=== PATIENT | male | born 1970 | race Caucasian/White ===

== ENCOUNTER 2023-11-25 21:10 | Emergency (ER) | payer BC, SELFPAY ==
[2023-11-25 21:13] VITALS: BP 195/145
[2023-11-25] MEDS: ADENOCARD 6 MG IV (21:29)
[2023-11-25 21:30] LABS: % Basophils 0.4 % (0-2); % Eosinophils 0.2 % (0-6); % Immature Granulocytes 0.4 % (0-0.5); % Lymphocytes 13.9 % (20.5-51.1); % Monocytes 6.7 % (1.7-9.3); % Neutrophils 78.4 % (42.2-75.2); Absolute Basophils 0.1 10^3/uL (0-0.2); Absolute Immature Granulocytes 0.1 10^3/uL (0-0.05); Absolute Lymphocytes 1.7 10^3/uL (1.2-3.4); Absolute Monocytes 0.8 10^3/uL (0.1-0.6); Absolute Neutrophils 9.4 10^3/uL (1.4-6.5); Hematocrit 47.7 % (39.0-52.0); Hemoglobin 17.2 g/dL (13.0-18.0); Mean Corp Hgb Conc. 36.1 g/dL (33.0-37.0); Mean Corpuscular Hgb 32.6 pg (27.0-31.0); Mean Corpuscular Volume 90.5 fL (80.0-94.0); Nucleated Red Blood Cells % 0 % (-); Platelet Count 260 10^3/uL (130-400); Red Blood Cell Count 5.27 10^6/uL (4.70-6.10); Red Cell Dist. Width 12.3 % (11.5-14.5)
[2023-11-25] MEDS: ADENOCARD 12 MG IV (21:31)
[2023-11-25 21:33] VITALS: BP 190/135
[2023-11-25 21:34] VITALS: BMI 26.9
[2023-11-25 21:36] VITALS: BP 177/122
[2023-11-25 21:46] LABS: ALT (SGPT) 31 U/L (0-50); AST (SGOT) 75 U/L (17-59); Albumin 4.6 g/dl (3.5-5.0); Alkaline Phosphatase 69 U/L (38-126); Blood Urea Nitrogen 21 mg/dl (9-20); Calcium 9.4 mg/dl (8.4-10.2); Carbon Dioxide 28 mmol/L (22-30); Chloride 101 mmol/L (98-107); Estimated Creatinine Clearance 94 ml/min; Glucose 137 mg/dl (70-99); Potassium 3.9 mmol/L (3.5-5.1); Sodium 136 mmol/L (135-145); Total Bilirubin 1.3 mg/dl (0.2-1.3); Total Protein 7.7 g/dl (6.3-8.2); eGFR > 60.00
--- NOTE | 2023-11-25 21:48 | ED.GENMED ---
History of Present Illness
General
Chief Complaint: Heart Rate Problem
Source: patient and spouse
Exam Limitations: none
Time Seen by Provider: 11/25/23 21:24
Nursing documentation reviewed up to this point in time: agreed with
Travel History
Have you had any contact with someone who has COVID-19?: No
Do you have any symptoms of coronavirus? Fever > 100 degrees, chills, cough, shortness of breath, sore throat, loss of taste or smell, muscle aches, or headache?: No
History of Present Illness
History of Present Illness:
53-year-old male with a past medical history of hypertension who presents to the emergency department for evaluation of palpitations. Patient reports onset of symptoms few hours ago while at work and have been consistent since that time. He says
that he has a history of similar palpitations in the past and has seen a repair clerk but does not have a clear diagnosis�he says that typically he has an episode of palpitations once a year the last for about an hour and goes away when he lays down
to relax. 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 Denies any chest
pain. Denies any dizziness. He denies any shortness of breath. He denies any nausea or vomiting or recent illness.
Past History
Past History
ED Past Medical History: HTN
ED Past Surgical History: None
Social History
Personal:
Living: with family
Review of Systems
Review of Systems
All Other Systems: ROS reviewed and negative except as documented in HPI and ROS
Constitutional: Denies fever or chills
Respiratory: Denies cough or trouble breathing
Cardiac: Reports palpitations; Denies chest pain, diaphoresis or syncope
ABD/GI: Denies abdominal pain, nausea, vomiting or diarrhea
: Denies flank pain
Musculoskeletal: Denies neck pain or back pain
Neurological: Denies dizzy, headache, weakness or numbness
Phy Exam
Physical Exam
Physical Exam:
General: Awake, alert, oriented x3; no acute distress
Head: Normocephalic, atraumatic
Eyes: Conjunctiva normal, EOMI
Throat: Airway intact, handling secretions
Neck: Trachea midline, supple without meningismus
Lungs: Clear to auscultation bilaterally, no wheezing, rales, rhonchi
Heart: Tachycardia with ostensibly regular rhythm, no murmurs, gallops, or rubs
Abd: Soft, non distended, nontender
Neuro: Cranial nerves grossly intact, speech fluid
Skin: no rash
Extremities: Warm and well-perfused with good pulses in all extremities, no edema in his extremities
Scores
Heart Failure Risk
Heart Failure Risk Score: Not Applicable
Heart Score for Chest Pain Patients
STEMI patient?: Not applicable
Withdrawal Assessment of Alcohol
Withdrawal Assessment Completed?: Not applicable
Course
Orders/Labs/Results
Orders:
Orders
11/25/23 21:12
Electrocardiogram (*1) Urgent
Reason for Study: Chest Pain
Cardiac Monitoring- Treatment ONCE
EKG- Treatment ONCE
IV Insert/Care/Rem.- Treatment PRN
O2 Therapy [RESP] Urgent
Titrate/Wean O2 to maintain O2 sat greater than (%): 90
Special Instructions: Maintain sats >/=90%
Pulse Ox/spot Check [RESP] Urgent
Quantity: 1
Special Instructions: ON ROOM AIR
11/25/23 21:18
Adenosine [Adenocard] 18 mg .ROUTE .STK-MED ONE
11/25/23 21:24
Complete Blood Count/With Diff Urgent
Comprehensive Metabolic Panel Urgent
TSH Reflex To Free T4 Urgent
Troponin I Urgent
11/25/23 21:29
Adenosine [Adenocard] 6 mg IV NOW STA
11/25/23 21:31
Adenosine [Adenocard] 12 mg IV NOW STA
11/25/23 21:50
Add On- LAB Urgent
Tests Added?: tsh
Abnormal Lab Results
11/25/23
21:24
WBC 12.0 H 10^3/uL
(4.8-10.8)
MCH 32.6 H pg
(27.0-31.0)
Abs Immat Gran (auto) 0.1 H 10^3/uL
(0-0.05)
Absolute Neuts (auto) 9.4 H 10^3/uL
(1.4-6.5)
Absolute Monos (auto) 0.8 H 10^3/uL
(0.1-0.6)
Neutrophils % 78.4 H %
(42.2-75.2)
Lymphocytes % 13.9 L %
(20.5-51.1)
BUN 21 H mg/dl
(9-20)
Glucose 137 H mg/dl
(70-99)
AST 75 H U/L
(17-59)
11/25/23 21:24
11/25/23 21:24
Vital Signs
Initial and Last Documented VS:
Initial Vital Signs
Temp Pulse Resp BP Pulse Ox
36.6 C 195 19 195/145 98
11/25/23 21:13 11/25/23 21:13 11/25/23 21:13 11/25/23 21:13 11/25/23 21:13
Last Documented Vital Signs
Temp Pulse Resp BP Pulse Ox
36.6 C 95 21 166/108 94
11/25/23 21:13 11/25/23 23:00 11/25/23 23:00 11/25/23 23:00 11/25/23 23:00
MDM/Problems Addressed
Differential Diagnosis Includes:
SVT/AVNRT, A-fib with RVR, a flutter
MDM/Problems Addressed:
53-year-old male presents for evaluation of palpitations for the past few hours arrives with a heart rate of 195 EKG shows SVT. He is hypertensive as well vital signs otherwise normal. Physical exam as above. He was immediately brought back to
room placed on radiographer cardiac catheterization IV placed labs sent off including CBC and CMP, thyroid studies. Patient was given 6 mg of adenosine without response; subsequently given 12 mg of adenosine and broke to a sinus tachycardia. Will provide IV fluid
bolus monitor on telemetry pending labs.
Labs reviewed: CBC shows marginal leukocytosis otherwise unremarkable, CMP no clinically significant abnormalities. Troponin was sent in triage despite no chest pain�this was negative. His thyroid studies were normal. He remains in a sinus rhythm
heart rate normalized, still mildly hypertensive but he has been asymptomatic since receiving adenosine and breaking to sinus rhythm. We have observed here for 2 hours and he is persistently well-appearing with normal vitals since adenosine. I
think he is stable for discharge at this point although we will provide a referral to cardiology for outpatient follow-up given that he has had multiple episodes in the past. He feels very comfortable with this plan. He will also follow-up with
his primary doctor to have his blood pressure rechecked. We spoke about return precautions and all questions were answered.
Acute Exacerbation and/or Progression of Chronic Illness:
Acutely hypertensive
Acute Exacerbation and/or Progression of Chronic Illness: HTN
*Pulse Oximetry
Patient hypoxic: no
*EKG
Interpreted by ED Provider?: Yes
Heart Rate: 188
Rate: tachycardiac
Rhythm: SVT
[place]: left axis deviation
Interval: normal interval
QRS Pattern: left vent hypertrophy
Ischemia: non-specific ST changes
*Critical Care Note
Total Time (30-74mins, 75-104mins- exclusive of procedures): 31
comment:
Critical care statement: A total of 31 minutes of critical care time was provided for this patient. This includes management of unstable vital signs, evaluation of the patient at bedside, frequent reassessment, discussion with
consultants/hospitalist, and review of pertinent medical records. This time was separate from time utilized to perform any aforementioned documented procedures
Data Reviewed
Source: patient and spouse
ED Attending Note
-
Portions of this chart may have been created with voice recognition software.� Occasional wrong word or��sound alike� substitutions may have occurred due to the inherent limitations of voice recognition software.
Discharge Plan
Departure
Patient Disposition: Home (Routine Discharge)
Date of Disposition: 11/25/23
Time of Disposition: 23:12
Patient with high blood pressure during this ER visit?: Yes
Discharge Problem:
SVT (supraventricular tachycardia), Hypertension
Instructions: Supraventricular tachycardia (SVT), BLOOD PRESSURE
Prescriptions:
No Action
labetalol 100 MG tablet
100 mg PO BID Qty: 25 1RF
Referrals:
Yusef Martinez MD [Family Provider] -
Vern Cade MD [Active] - Call in 1-3 days for appt
Activity Restrictions/Additional Instructions:
Thank you for visiting the Emergency Department at [facility].
1. Please schedule a follow up appointment as directed. Call first thing tomorrow morning to make an appointment.
2. If indicated, please take your medications as instructed and indicated on discharge paperwork.
3. If any of your symptoms do not improve, or persist, or become more severe within 6-12 hours, please return to the emergency department for further care.
4. Please return to the emergency department if you develop a headache, neck pain/stiffness, fever greater than 100.4F, chest pain, shortness of breath, persistent nausea, vomiting, slurred speech, difficulty walking, numbness/tingling, weakness,
signs of infection or any other symptoms that are worrisome to you.
Please call [phone] if you have any questions.
Interventions
Interventions:
*Risk Screen - Suicide Last Done: 11/25/23 21:13
*General Assessment Last Done: 11/25/23 21:13
*Neglect/Abuse Screening Last Done: 11/25/23 21:13
*ED COVID-19 Vaccine History Last Done: 11/25/23 21:13
ED- Cardiac Assessment Last Done: 11/25/23 21:34
ED- Pulmonary Assessment Last Done: 11/25/23 21:34
[2023-11-25 21:55] LABS: Troponin I 0.016 ng/ml
[2023-11-25 22:00] VITALS: BP 169/106
[2023-11-25 22:30] VITALS: BP 166/112
[2023-11-25 22:40] LABS: TSH Reflex To Free T4 0.92 uIU/ml (0.47-4.68)
[2023-11-25 23:00] VITALS: BP 166/108
== END 2023-11-25 23:31 | disposition home or self-care (01) ==
LOC: EMR 21:10
PROVIDERS: EMERGENCY PHYSICIAN Emergency Medicine; FAMILY PHYSICIAN Family Medicine
DX: I47.19 Other supraventricular tachycardia (principal); I11.9 Hypertensive heart disease without heart failure
CPT/HCPCS: 99291; 96374; 96376; 80053; 84443; 84484; 85025; 93005; J0153

== ENCOUNTER → 2023-12-24 14:55 | Outpatient (REF) | payer BC, SELFPAY | LOC: DHCBC HW 14:55 | PROVIDERS: ATTENDING PHYSICIAN Internal Medicine Cardiovascular Disease; FAMILY PHYSICIAN Family Medicine | DX: I42.9 Cardiomyopathy, unspecified (principal) | CPT/HCPCS: 93306 ==

== ENCOUNTER → 2024-07-11 06:27 | Day surgery (SDC) | payer BC, SELFPAY | LOC: GI 06:27 | PROVIDERS: ATTENDING PHYSICIAN Internal Medicine Gastroenterology | DX: Z12.11 Encounter for screening for malignant neoplasm of colon (principal); Z53.8 Procedure and treatment not carried out for other reasons | CPT/HCPCS: 45378; 80053; 85025; 93005; G0378 ==

== ENCOUNTER 2024-07-11 15:15 | Emergency (ER) | payer BC, SELFPAY ==
[2024-07-11] VITALS (13 sets, daily range): BP systolic 124–244; BP diastolic 97–149; BMI 25.8
--- NOTE | 2024-07-11 15:26 | ED.GENMED ---
ED Provider Triage
<Neville Kenney PA-C - Last Filed: 07/11/24 15:31>
-
Patient seen by provider in Triage?: Seen in Triage
Patient wheeled down by Dr. Patel from the GI suite. He was due for a colonoscopy today and they noticed him to have elevated blood pressure readings. He procedure. He takes labetalol 100 mg twice a day which she took this morning. Blood
pressure in triage 239/147. He denies chest pain headache shortness of breath numbness or tingling.
Ordered basic labs also requested for him to be next to be seen secondary to elevated BP.
History of Present Illness
<Neville Kenney PA-C - Last Filed: 07/11/24 15:31>
General
Chief Complaint: Blood Pressure Problem
Time Seen by Provider: 07/11/24 15:51
<Marisol Edmond DO - Last Filed: 07/11/24 18:20>
History of Present Illness
History of Present Illness:
54-year-old male with history of high blood pressure on metoprolol presenting to the emergency department for elevated blood pressure. Patient presents from outpatient GI testing, was supposed to get a colonoscopy. Patient did the prep with sodium
bicarbonate. Prior to getting the procedure, was noted to have a blood pressure greater than 200 systolic. Reports that he is had elevated blood pressure in the past, however never to this degree. Denies any associated symptoms. Denies chest
pain, difficulty breathing, abdominal pain. Believes that it could be secondary to the salt content from the GI prep. He currently denies any acute medical complaints
Past History
<Neville Kenney PA-C - Last Filed: 07/11/24 15:31>
Past History
ED Past Medical History: HTN
ED Past Surgical History: None
Social History
Personal:
Living: with family
Phy Exam
<DO Margret Borjas Last Filed: 07/11/24 18:20>
Physical Exam
Physical Exam:
General: Well-appearing, no clinical signs of dehydration, nontoxic and in no acute distress
HEENT: protecting airway
Neck: appears supple
CV: Normal heart rate, regular rhythm
Resp: No accessory muscle use, no increased work of breathing, lungs clear to auscultation bilaterally
Abd: Soft and non-distended, no tenderness to palpation
Extremities: No deformities, no swelling
Neuro: alert, no focal neurologic deficit
: deferred
Rectal: deferred
Psych: Normal affect
Skin: Intact
Course
<Neville Kenney PA-C - Last Filed: 07/11/24 15:31>
Orders/Labs/Results
Orders:
Orders
07/11/24 15:25
Electrocardiogram (*1) Urgent
Reason for Study: Abdominal Pain
EKG- Treatment ONCE
07/11/24 15:45
Complete Blood Count/With Diff Urgent
Comprehensive Metabolic Panel Urgent
07/11/24 16:23
Labetalol HCl [Trandate] 20 mg IV NOW STA
07/11/24 17:41
Labetalol HCl [Trandate] 10 mg IV NOW STA
Abnormal Lab Results
07/11/24
15:45
MCH 31.9 H pg
(27.0-31.0)
Absolute Lymphs (auto) 0.8 L 10^3/uL
(1.2-3.4)
Neutrophils % 75.9 H %
(42.2-75.2)
Lymphocytes % 14.0 L %
(20.5-51.1)
Glucose 124 H mg/dl
(70-99)
Total Bilirubin 1.4 H mg/dl
(0.2-1.3)
07/11/24 15:45
07/11/24 15:45
Vital Signs
Initial and Last Documented VS:
Initial Vital Signs
Temp Pulse Resp BP Pulse Ox
98.4 F 115 18 239/149 99
07/11/24 15:23 07/11/24 15:23 07/11/24 15:23 07/11/24 15:23 07/11/24 15:23
Last Documented Vital Signs
Temp Pulse Resp BP Pulse Ox
98.4 F 103 21 184/111 94
07/11/24 15:23 07/11/24 17:45 07/11/24 17:45 07/11/24 17:45 07/11/24 17:45
<Marisol Edmond, DO - Last Filed: 07/11/24 18:20>
Orders/Labs/Results
Orders:
Orders
07/11/24 15:25
Electrocardiogram (*1) Urgent
Reason for Study: Abdominal Pain
EKG- Treatment ONCE
07/11/24 15:45
Complete Blood Count/With Diff Urgent
Comprehensive Metabolic Panel Urgent
07/11/24 16:23
Labetalol HCl [Trandate] 20 mg IV NOW STA
07/11/24 17:41
Labetalol HCl [Trandate] 10 mg IV NOW STA
Abnormal Lab Results
07/11/24
15:45
MCH 31.9 H pg
(27.0-31.0)
Absolute Lymphs (auto) 0.8 L 10^3/uL
(1.2-3.4)
Neutrophils % 75.9 H %
(42.2-75.2)
Lymphocytes % 14.0 L %
(20.5-51.1)
Glucose 124 H mg/dl
(70-99)
Total Bilirubin 1.4 H mg/dl
(0.2-1.3)
07/11/24 15:45
07/11/24 15:45
Vital Signs
Initial and Last Documented VS:
Initial Vital Signs
Temp Pulse Resp BP Pulse Ox
98.4 F 115 18 239/149 99
07/11/24 15:23 07/11/24 15:23 07/11/24 15:23 07/11/24 15:23 07/11/24 15:23
Last Documented Vital Signs
Temp Pulse Resp BP Pulse Ox
98.4 F 103 21 184/111 94
07/11/24 15:23 07/11/24 17:45 07/11/24 17:45 07/11/24 17:45 07/11/24 17:45
<Marisol Edmond DO - Last Filed: 07/11/24 18:20>
MDM/Problems Addressed
MDM/Problems Addressed:
54-year-old male presenting to the emergency department with elevated blood pressure from GI suite. Vital signs arrival significant for high blood pressure.
Patient is well-appearing, no acute distress or discomfort. Patient is currently asymptomatic. At this time no suspicion for denies urgency or or emergency given asymptomatic nature. Given degree of hypotension, will administer labetalol, patient
is already on beta-esha. Will screen with laboratory analysis to ensure no endorgan dysfunction.
18:20 - Labs are unremarkable. Blood pressure has improved. Patient remains asymptomatic. At this time feel stable for discharge, however with close outpatient follow-up regarding management of his blood pressure and possible adjustment of his
medications. She return precautions medicated and patient verbalized understanding
<Marisol Edmond DO - Last Filed: 07/11/24 18:20>
*EKG
Interpreted by ED Provider?: Yes
EKG Intrepretation Date: 07/11/24
EKG Intrepretation Time: 17:19
Interpretation: normal
Heart Rate: 90
Rate: normal
Rhythm: sinus
[place]: left axis deviation
Interval: normal interval
QRS Pattern: left vent hypertrophy
Ischemia: non-specific ST changes
*Critical Care Note
Total Time (30-74mins, 75-104mins- exclusive of procedures): Not Applicable
ED Attending Note
<Neville Kenney PA-C - Last Filed: 07/11/24 15:31>
-
Portions of this chart may have been created with voice recognition software.� Occasional wrong word or��sound alike� substitutions may have occurred due to the inherent limitations of voice recognition software.
Discharge Plan
Departure
Prescriptions:
No Action
labetalol 100 MG tablet
100 mg PO BID Qty: 25 1RF
Referrals:
Yusef Martinez MD [Family Provider] -
Interventions
Interventions:
*Risk Screen - Suicide Last Done: 07/11/24 15:23
*General Assessment Last Done: 07/11/24 15:23
*Neglect/Abuse Screening Last Done: 07/11/24 15:23
ED- Fall Risk Assessment Last Done: 07/11/24 15:57
*ED COVID-19 Vaccine History Last Done: 07/11/24 15:23
ED- Cardiac Assessment Last Done: 07/11/24 15:57
ED- Neurological Assessment Last Done: 07/11/24 15:57
ED- Pulmonary Assessment Last Done: 07/11/24 15:57
Discharge Date and Time
Print Language: BERMUDIAN
[2024-07-11 16:02] LABS: % Basophils 0.5 % (0-2); % Immature Granulocytes 0.2 % (0-0.5); % Monocytes 8.4 % (1.7-9.3); % Neutrophils 75.9 % (42.2-75.2); Absolute Eosinophils 0.1 10^3/uL (0-0.7); Absolute Lymphocytes 0.8 10^3/uL (1.2-3.4); Absolute Monocytes 0.5 10^3/uL (0.1-0.6); Absolute Neutrophils 4.5 10^3/uL (1.4-6.5); Hematocrit 43.6 % (39.0-52.0); Mean Corp Hgb Conc. 36.7 g/dL (33.0-37.0); Mean Corpuscular Hgb 31.9 pg (27.0-31.0); Mean Corpuscular Volume 86.9 fL (80.0-94.0); Nucleated Red Blood Cells % 0 % (-); Platelet Count 226 10^3/uL (130-400); Red Blood Cell Count 5.02 10^6/uL (4.70-6.10); Red Cell Dist. Width 11.7 % (11.5-14.5); White Blood Cell Count 5.9 10^3/uL (4.8-10.8)
[2024-07-11 16:14] LABS: ALT (SGPT) 15 U/L (0-50); AST (SGOT) 26 U/L (17-59); Albumin 4.6 g/dl (3.5-5.0); Alkaline Phosphatase 53 U/L (38-126); Blood Urea Nitrogen 14 mg/dl (9-20); Calcium 9.3 mg/dl (8.4-10.2); Carbon Dioxide 24 mmol/L (22-30); Chloride 99 mmol/L (98-107); Estimated Creatinine Clearance 103 ml/min; Glucose 124 mg/dl (70-99); Potassium 3.8 mmol/L (3.5-5.1); Sodium 139 mmol/L (135-145); Total Bilirubin 1.4 mg/dl (0.2-1.3); Total Protein 7.3 g/dl (6.3-8.2); eGFR > 60.00
[2024-07-11] MEDS: TRANDATE 20 MG IV (16:31)
[2024-07-11] MEDS: TRANDATE 10 MG IV (17:45)
== END 2024-07-11 18:30 | disposition home or self-care (01) ==
LOC: EMR 15:15
PROVIDERS: Physician Assistant; EMERGENCY PHYSICIAN Student in an Organized Health Care Education/Training Program; FAMILY PHYSICIAN Family Medicine
DX: R03.0 Elevated blood-pressure reading, without diagnosis of hypertension (principal)
CPT/HCPCS: 80053; 85025; 93005; 96374; 96376; 99283

== ENCOUNTER 2024-07-15 13:40 | Inpatient (IN) | payer BC, SELFPAY ==
[2024-07-15] VITALS (34 sets, daily range): BP systolic 139–244; BP diastolic 88–159; BMI 26.3; BMI 25.6
--- NOTE | 2024-07-15 10:45 | EDRN ---
Darell NOVOA in room w/ pt.
--- NOTE | 2024-07-15 10:50 | EDRN ---
Pt states that he was scheduled for a colonoscopy on Thursday and could not have it done due to HTN. Pt was sent to ER w/out having colonoscopy done due to how high his BP was. Pt states he was administered 2 doses of Labetolol before it went down
then followed up w/ his PCP. He has been on Metoprolol (toprol) 100 mg daily and his PCP added valsartan 80 mg BID to his regimen but pt's BP started to go higher and his spouse who was taking his BP called PCP who advised pt to come to ER and be
seen.
--- NOTE | 2024-07-15 11:09 | ED.GENMED ---
History of Present Illness
General
Chief Complaint: Blood Pressure Problem
Source: patient
Exam Limitations: none
Time Seen by Provider: 07/15/24 10:59
History of Present Illness
History of Present Illness:
54-year-old male with history of hypertension, SVT that presents complaining of elevated blood pressure readings. He was here several days ago for the same issue. He was due for a colonoscopy was in the GI suite and noticed preoperatively to have
elevated readings were taken here. Labs were drawn he was given labetalol IV blood pressure decreased and he remained asymptomatic and was discharged. In the interim he has seen his family doctor who started him on valsartan however his blood
pressure seem to continue to go up despite the valsartan. This was discontinued. He denies headache vision change chest pain shortness of breath. Denies any difficulty urinating. No leg swelling. No other complaints at this time.
Past History
Past History
ED Past Medical History: HTN
ED Past Surgical History: None
Social History
Personal:
Living: with family
Phy Exam
Physical Exam
Physical Exam:
General: Well-appearing male no acute respiratory distress
HEENT: Normocephalic atraumatic
Heart: Regular rate and rhythm lungs: Clear no wheeze
Abdomen soft nontender nondistended
Extremities: No cyanosis or edema
Skin is warm no rash
Course
Orders/Labs/Results
Orders:
Orders
07/15/24 11:09
Electrocardiogram (*1) Urgent
Reason for Study: Chest Pain
EKG- Treatment ONCE
07/15/24 11:56
Complete Blood Count/With Diff Urgent
Comprehensive Metabolic Panel Urgent
07/15/24 12:37
Labetalol HCl [Trandate] 10 mg IV NOW STA
Abnormal Lab Results
07/15/24
11:56
MCH 32.0 H pg
(27.0-31.0)
Absolute Lymphs (auto) 0.9 L 10^3/uL
(1.2-3.4)
Lymphocytes % 14.7 L %
(20.5-51.1)
Monocytes % 10.0 H %
(1.7-9.3)
Glucose 103 H mg/dl
(70-99)
07/15/24 11:56
07/15/24 11:56
Vital Signs
Initial and Last Documented VS:
Initial Vital Signs
Temp Pulse Resp BP Pulse Ox
98.1 F 86 18 244/134 99
07/15/24 10:22 07/15/24 10:22 07/15/24 10:22 07/15/24 10:22 07/15/24 10:22
Last Documented Vital Signs
Temp Pulse Resp BP Pulse Ox
98.1 F 86 18 216/138 99
07/15/24 10:22 07/15/24 10:22 07/15/24 10:22 07/15/24 10:28 07/15/24 10:22
MDM/Problems Addressed
Differential Diagnosis Includes:
Asymptomatic hypertension. Patient has had an adverse reaction to lisinopril which included cough. He also had a fast heartbeat related to HCTZ. Recently tried valsartan but this was discontinued by the family doctor. Will check labs again for
any signs of endorgan dysfunction. Will obtain EKG. Discussed with nephrology regarding recommendations.
Blood pressure 220s over 120s
*Critical Care Note
Total Time (30-74mins, 75-104mins- exclusive of procedures): Not Applicable
Update Note
Update Note:
Labs reviewed without significant finding. Blood pressure remained high. Labetalol ordered IV. Reviewed message sent in by family doctor. Discussed with nephrology. Will admit to hospital for hypertension
ED Attending Note
-
Portions of this chart may have been created with voice recognition software.� Occasional wrong word or��sound alike� substitutions may have occurred due to the inherent limitations of voice recognition software.
Discharge Plan
Departure
Patient Disposition: Admit
Date of Disposition: 07/15/24
Time of Disposition: 12:43
Admit to: Telemetry
Presentation/result/management discussed w/ accepting MD/DO: Hospitalist
Discharge Problem:
Asymptomatic hypertensive urgency
Prescriptions:
No Action
metoprolol succinate [Toprol XL] 100 mg Tablet Extended Release 24 Hr
100 mg PO DAILY
Referrals:
Shanice Belle MD [Family Provider] -
Interventions
Interventions:
*Risk Screen - Suicide Last Done: 07/15/24 10:22
*Neglect/Abuse Screening Last Done: 07/15/24 10:22
*ED COVID-19 Vaccine History Last Done: 07/15/24 10:28
Discharge Date and Time
Print Language: TAJIK
[2024-07-15 12:09] LABS: % Basophils 0.6 % (0-2); % Eosinophils 2.4 % (0-6); % Immature Granulocytes 0.3 % (0-0.5); % Lymphocytes 14.7 % (20.5-51.1); Absolute Eosinophils 0.2 10^3/uL (0-0.7); Absolute Lymphocytes 0.9 10^3/uL (1.2-3.4); Absolute Monocytes 0.6 10^3/uL (0.1-0.6); Absolute Neutrophils 4.5 10^3/uL (1.4-6.5); Hematocrit 43.6 % (39.0-52.0); Hemoglobin 15.8 g/dL (13.0-18.0); Mean Corp Hgb Conc. 36.2 g/dL (33.0-37.0); Mean Corpuscular Volume 88.4 fL (80.0-94.0); Mean Platelet Volume 9.4 fL (7.4-10.4); Nucleated Red Blood Cells % 0 % (-); Platelet Count 238 10^3/uL (130-400); Red Blood Cell Count 4.93 10^6/uL (4.70-6.10); Red Cell Dist. Width 11.8 % (11.5-14.5); White Blood Cell Count 6.3 10^3/uL (4.8-10.8)
[2024-07-15 12:21] LABS: ALT (SGPT) 14 U/L (0-50); AST (SGOT) 24 U/L (17-59); Albumin 4.4 g/dl (3.5-5.0); Alkaline Phosphatase 46 U/L (38-126); Blood Urea Nitrogen 19 mg/dl (9-20); Calcium 9.9 mg/dl (8.4-10.2); Carbon Dioxide 30 mmol/L (22-30); Chloride 101 mmol/L (98-107); Glucose 103 mg/dl (70-99); Potassium 4.2 mmol/L (3.5-5.1); Sodium 140 mmol/L (135-145); Total Bilirubin 0.9 mg/dl (0.2-1.3); eGFR > 60.00
--- NOTE | 2024-07-15 12:35 | EDRN ---
Salima NOVOA in room w/ pt.
--- NOTE | 2024-07-15 13:05 | EDRN ---
Dr. Noel in to see pt.
[2024-07-15] MEDS: TRANDATE 10 MG IV ×2 (13:11→19:33)
--- NOTE | 2024-07-15 13:17 | HPS.HSE ---
Family Physician
-
Family Physician: Shanice Belle MD
Chief Complaint
-
elevated blood pressure
History of Present Illness
54-year-old male past medical history of pericarditis, hypertension, SVT, presenting for elevated blood pressure readings. He was here 4 days ago ago for the same problem. At that time he was due for colonoscopy and was in the GI suite and was
noticed to have elevated readings preoperatively. He had labs checked at that time and was given IV labetalol his blood pressure improved and he was discharged. In the interim he was seen by his family doctor who started him on valsartan however
blood pressure was increasing despite valsartan so he was told to stop taking this today and told to come to the emergency room. He denies any symptoms such as headache, vision changes, chest pain or shortness of breath. Denies swelling.
He has been compliant with metoprolol which she has been on for several years.
15 years ago he was started on CLAY inhibitor and developed cough. He was found to have pericarditis at that time and had a [place] filter placed which was eventually removed.
He developed SVT 6 months ago for which he saw cardiology.
He denies smoking or alcohol use or drugs.
He has family history of brother and father with high blood pressure. His brother had stroke and heart disease.
Medical History
Past Medical History
Past Medical History: Reports Other (pericarditis, hypertension, SVT)
Past Surgical History: Reports Other (IVC filter )
Social History
Tobacco: Non-smoker
Alcohol: None
Drug: None
Family History
Family History: Other (He has family history of brother and father with high blood pressure. His brother had stroke and heart disease.)
Allergies / Home Medications
Allergies reflects when Allergies were last updated in [facility].
Home Medications with original date entered in [facility]
Allergy/Medication List:
Allergies
Allergy/AdvReac Type Severity Reaction Status Date / Time
hydrochlorothiazide Allergy FAST HEART Verified 07/15/24 10:27
[Hydrochlorothiazide] BEAT
lisinopril [Lisinopril] Allergy COUGH AND Verified 07/15/24 10:27
RASH
penicillin V [Penicillin V] Allergy RASH, FAST Verified 07/15/24 10:27
HEART BEAT
Home Medications
metoprolol succinate 100 mg tablet,extended release 24 hr (Toprol XL) 100 mg PO DAILY 07/15/24
Review of Systems
-
History Source: Patient
A 12 point ROS was completed and negative except as noted: Yes
Constitutional: Reports No Symptoms
EENT: Reports No Symptoms
Respiratory: Reports No Symptoms
Cardiac: Reports No Symptoms
Abdomen/GI: Reports No Symptoms
: Reports No Symptoms
Musculoskeletal: Reports No Symptoms
Skin: Reports No Symptoms
Neurological: Reports No Symptoms
Endocrine: Reports No Symptoms
Hematologic/Lymphatic: Reports No Symptoms
Psych: Reports No Symptoms
Physical Exam
Vital Signs
Vital Signs
Temp Pulse Resp BP Pulse Ox
98.1 F 75 18 209/130 99
07/15/24 10:22 07/15/24 13:11 07/15/24 10:22 07/15/24 13:11 07/15/24 10:22
Physical Exam
General: Well Developed, Well Nourished and No Apparent Distress
HEENT: NormoCephalic, Moist mucous membranes and Atraumatic
Respiratory: Clear
Cardiac: S1/S2 and Regular Rhythm; No Murmur or Rub
GI: Soft, Non Tender, Non Distended and Normal Bowel Sounds; No Organomegaly
Rectal: Deferred by Provider
Musculoskeletal: No Clubbing, No Cyanosis and No Edema
Skin: No Rash
Neuro: Nonfocal/grossly intact
Laboratory Results
-
07/15/24 11:56
07/15/24 11:56
Laboratory Results
Total Bilirubin 0.9 mg/dl (0.2-1.3) 07/15/24 11:56
AST 24 U/L (17-59) 07/15/24 11:56
ALT 14 U/L (0-50) 07/15/24 11:56
Alkaline Phosphatase 46 U/L (38-126) 07/15/24 11:56
Data Reviewed
-
Lab Data: Labs Reviewed by me
Old Records: Reviewed
Impression/Plan
-
IMPRESSION:
PLAN:
# Asymptomatic hypertensive urgency
# History of hypertension
-Blood pressure up to 244/134
-IV labetalol ordered
-Try IV hydralazine if no improvement
-EKG shows normal sinus rhythm, possible left atrial lodgment, left axis deviation, LVH
-Echo from November shows EF of 50%
-Patient did not tolerate CLAY inhibitor in the past, no improvement with valsartan
-Start amlodipine 10 mg
-Continue metoprolol
-Will likely need secondary hypertension workup with renal artery ultrasound, screening for sleep apnea, aldosterone level if blood pressure continues to be uncontrolled
History of SVT
-Continue metoprolol
History of pericarditis
History of [place] filter which was since removed
-No history of confirmed DVT
Full code
DVT prophylaxis heparin
Regular diet
[2024-07-15] MEDS: NORVASC 10 MG PO (14:03)
[2024-07-15] MEDS: APRESOLINE 5 MG IV (15:16)
[2024-07-15 19:30] LABS: Glucose - Point of Care 132 mg/dl (70-99)
--- NOTE | 2024-07-15 20:08 | W.PN.UPDATE ---
Update Note
Progress Note Update
Rapid response was called. Patient HR in 200's, BP 200's/140's, RN taking EKG's at this time. IV Labetalol 10mg x1 given. Patient denies any chest pain, or shortness of breath, Stated ' I can feel the Heart beating fast' Noted SVT 218 on the EKG.
Adenosine given per protocol. HR stabilized Sinus Tachy in 105-115. BP continuos to be elevated in 200's SBP, Patient continuos to be asymptomatic. Will order IV Nicardipine drip and transfer patient to ICU. Texted [employer]otive [employer] Salesperson Dr. Heck.
[2024-07-15 20:13] LABS: % Basophils 0.6 % (0-2); % Eosinophils 2.6 % (0-6); % Immature Granulocytes 0.2 % (0-0.5); % Lymphocytes 28.3 % (20.5-51.1); % Monocytes 13.2 % (1.7-9.3); % Neutrophils 55.1 % (42.2-75.2); Absolute Basophils 0.1 10^3/uL (0-0.2); Absolute Eosinophils 0.2 10^3/uL (0-0.7); Absolute Lymphocytes 2.4 10^3/uL (1.2-3.4); Absolute Monocytes 1.1 10^3/uL (0.1-0.6); Absolute Neutrophils 4.6 10^3/uL (1.4-6.5); Hematocrit 47.3 % (39.0-52.0); Hemoglobin 17.2 g/dL (13.0-18.0); Mean Corp Hgb Conc. 36.4 g/dL (33.0-37.0); Mean Corpuscular Hgb 31.8 pg (27.0-31.0); Mean Corpuscular Volume 87.4 fL (80.0-94.0); Mean Platelet Volume 9.7 fL (7.4-10.4); Nucleated Red Blood Cells % 0 % (-); Platelet Count 283 10^3/uL (130-400); Red Blood Cell Count 5.41 10^6/uL (4.70-6.10); Red Cell Dist. Width 11.9 % (11.5-14.5); White Blood Cell Count 8.4 10^3/uL (4.8-10.8)
[2024-07-15 20:25] LABS: ALT (SGPT) 15 U/L (0-50); AST (SGOT) 24 U/L (17-59); Albumin 4.9 g/dl (3.5-5.0); Alkaline Phosphatase 54 U/L (38-126); Blood Urea Nitrogen 20 mg/dl (9-20); Calcium 9.8 mg/dl (8.4-10.2); Carbon Dioxide 26 mmol/L (22-30); Chloride 101 mmol/L (98-107); Estimated Creatinine Clearance 103 ml/min; Glucose 123 mg/dl (70-99); INR 1.04; PT 13.4 Sec (11.4-14.6); Potassium 3.3 mmol/L (3.5-5.1); Sodium 142 mmol/L (135-145); Total Bilirubin 0.6 mg/dl (0.2-1.3); Total Protein 7.7 g/dl (6.3-8.2); eGFR > 60.00
[2024-07-15 20:26] LABS: APTT 30.6 Sec (23.4-35.0)
[2024-07-15 20:36] LABS: Troponin I < 0.012 ng/ml
[2024-07-15 21:07] LABS: Magnesium 2.1 mg/dl (1.6-2.3); Phosphorus 3.4 mg/dl (2.5-4.5)
[2024-07-15] MEDS: CARDIZEM 20 MG IV (21:08)
[2024-07-15] MEDS: CARDIZEM 125 IV (21:10)
--- NOTE | 2024-07-15 22:38 | RR ---
A Rapid Response was called on this patient, please see Rapid Response form. Galvanizer called rapid response on patient due to HR in 200s. On assessment, patient stated no chest pain, but states mild shortness of breath and heart palpitations. Patient
placed on 3LNC. EKG was completed reading SVT. BP 200s/140s. IV labetalol 10 mg x1 given. Adenosine IV given per protocol. HR stabilized to ST 100-110s. BP reading 190-200s/120-140s. Report given to receiving RN. Patient transferred to ICU. Patient
has all belongings.
[2024-07-15] MEDS: HEPARIN SC (22:42)
--- NOTE | 2024-07-15 23:00 | PTCARENOTE ---
Pt was RR on floor for SVT, see RR sheet, pt states he was asymptomatic besides feeling of 'rapid heart beat', on arrival to ICU pt hypertensive and tachy in the 110s to 120s, cardizem given, and cardizem gtt started, pt AAOx3, denies pain and SOB,
RA 95%, uses urinal good UO, skin intact, call espinosa in reach.
[2024-07-16] VITALS (54 sets, daily range): BP systolic 122–183; BP diastolic 87–116; BMI 25.7
[2024-07-16] MEDS: KCL 40 MEQ PO (00:01)
--- NOTE | 2024-07-16 04:16 | PTCARENOTE ---
pt denies pain and SOB, cardizem gtt turned off around 0240, HR 70, SR on the monitor, CREATIVE ART THERAPIST made aware, call espinosa in reach
[2024-07-16 05:16] LABS: % Basophils 0.6 % (0-2); % Eosinophils 1.7 % (0-6); % Immature Granulocytes 0.2 % (0-0.5); % Lymphocytes 13.5 % (20.5-51.1); % Monocytes 10.7 % (1.7-9.3); % Neutrophils 73.3 % (42.2-75.2); Absolute Basophils 0.1 10^3/uL (0-0.2); Absolute Eosinophils 0.1 10^3/uL (0-0.7); Absolute Lymphocytes 1.1 10^3/uL (1.2-3.4); Absolute Monocytes 0.9 10^3/uL (0.1-0.6); Absolute Neutrophils 6.1 10^3/uL (1.4-6.5); Hematocrit 42.4 % (39.0-52.0); Hemoglobin 15.7 g/dL (13.0-18.0); Mean Corpuscular Hgb 32.2 pg (27.0-31.0); Mean Corpuscular Volume 86.9 fL (80.0-94.0); Mean Platelet Volume 9.3 fL (7.4-10.4); Nucleated Red Blood Cells % 0 % (-); Platelet Count 247 10^3/uL (130-400); Red Blood Cell Count 4.88 10^6/uL (4.70-6.10); Red Cell Dist. Width 11.9 % (11.5-14.5); White Blood Cell Count 8.3 10^3/uL (4.8-10.8)
[2024-07-16 05:40] LABS: ALT (SGPT) 19 U/L (0-50); AST (SGOT) 30 U/L (17-59); Albumin 4.3 g/dl (3.5-5.0); Alkaline Phosphatase 49 U/L (38-126); Blood Urea Nitrogen 18 mg/dl (9-20); Carbon Dioxide 23 mmol/L (22-30); Chloride 105 mmol/L (98-107); Estimated Creatinine Clearance 116 ml/min; Glucose 113 mg/dl (70-99); Potassium 3.7 mmol/L (3.5-5.1); Sodium 138 mmol/L (135-145); Total Bilirubin 0.9 mg/dl (0.2-1.3); eGFR > 60.00
[2024-07-16] MEDS: KCL 20 MEQ PO (06:39)
--- NOTE | 2024-07-16 07:15 | W.PN.HOSP.TC ---
Today's Communication/Plan
-
Follow with cardiology recommendations
Possible dc planning
Assessment / Plan
Assessment / Plan
Physical Exam
General: Well Developed, Well Nourished and No Apparent Distress
HEENT: NormoCephalic, Moist mucous membranes and Atraumatic
Respiratory: Clear
Cardiac: S1/S2 and Regular Rhythm;
GI: Soft, Non Tender, Non Distended and Normal Bowel Sounds; No Organomegaly
Rectal: No bleeding
Musculoskeletal: No Clubbing, No Cyanosis and No Edema
Skin: No Rash
Neuro: Nonfocal/grossly intact
Psych: calm , no agitation
# History of SVT
Events over night noted
f/w cardiology recommendations.
-Continue metoprolol
# hypertensive urgency
# History of essential hypertension
-Blood pressure up to 244/134
Currently , BP is better controlled
On Amlodipine 10 mg QD & Toprol XL 100 mg QD
-EKG showed normal sinus rhythm, possible left atrial lodgment, left axis deviation, LVH
-Echo from November, showed LVEF 50%, No significant valvular disease.
-Patient did not tolerate CLAY inhibitor in the past, no improvement with valsartan
# Hypokalemia, resolved
# History of pericarditis
History of [place] filter which was since removed
-No history of confirmed DVT
Full code
DVT prophylaxis heparin
Regular diet
Total time spent to see the patient on the floor, examine the patient, review data and lab results, discuss treatment plan with patient, nursing staff around 55 minutes
Anticipated Discharge: Within 24 hours
Subjective/Interval History
-
Date of Service: July 16, 2024
No chest pain
Off Cardizem gtt since around 2-3 am
Objective Data
-
Labs:
Laboratory Results
07/15/24 07/16/24
19:35 04:55
WBC 8.4 8.3
Hgb 17.2 15.7
Hct 47.3 42.4
Plt Count 283 247
PT 13.4
INR 1.04
APTT 30.6
Sodium 142 138
Potassium 3.3 L 3.7
Chloride 101 105
Carbon Dioxide 26 23
BUN 20 18
Creatinine 0.9 0.8
Glucose 123 H 113 H
Calcium 9.8 9.0
Total Bilirubin 0.6 0.9
AST 24 30
ALT 15 19
Alkaline Phosphatase 54 49
Vital Signs:
Vital Signs
Temp Pulse Resp BP Pulse Ox
97.6 F 75 18 124/91 93
07/16/24 07:00 07/16/24 06:30 07/16/24 06:30 07/16/24 06:30 07/16/24 06:15
I&O
07/15/24 07/16/24 07/17/24
06:59 06:59 06:59
Intake Total 75 / 75
Output Total 2400 / 2400
Balance -2325 / -2325
--- NOTE | 2024-07-16 07:31 | CON.INTV ---
Consultation
Consultation Request
Date/Time Consultation Requested: 07/16/2024-7 AM
Date/Time Consultation Performed: 07/16/2024-7:30 AM
Requesting Provider: Hospitalist
Performing Provider: Dr. Scott
Reason for Consultation: Critical care management/SVT/hypertensive urgency
Medical History
-
Chief Complaint: SVT
History of Present Illness:
54-year-old male with a history of hypertension, SVT, pericarditis, presented with hypertension noted to have an SVT receiving adenosine and requiring Cardizem intravenously to control-resource conservation specialist consulted for SVT/hypertensive emergency/critical
care management 07/16/2024. Patient feels much improved. He currently denies any shortness of breath, chest pain, chest tightness, productive cough, pleurisy, abdominal pain, nausea, vomiting, focal weakness, numbness, or lower extremity swelling.
He might snore somewhat does not feel unrefreshed in the morning he does not complain of daytime somnolence.
Past Medical History
Past Medical History: None (Hypertension. Pericarditis. SVT. IVC filter.)
Social History
Tobacco: Non-smoker
Alcohol: None
Drug: None
Living: With Family
Occupational Exposures: No known asbestos exposure
Environmental Exposures: No known tuberculosis exposure
Family History
Family History: Reviewed & Not Pertinent and Other (Father and brother with hypertension and brother had CVA and heart disease.)
Allergies / Home Medications
Allergies
Allergy/AdvReac Type Severity Reaction Status Date / Time
hydrochlorothiazide Allergy FAST HEART Verified 07/15/24 10:27
[Hydrochlorothiazide] BEAT
lisinopril [Lisinopril] Allergy COUGH AND Verified 07/15/24 10:27
RASH
penicillin V [Penicillin V] Allergy RASH, FAST Verified 07/15/24 10:27
HEART BEAT
Home Medications
�Medication �Instructions �Recorded �Confirmed �Last Taken �Type
metoprolol succinate 100 mg 100 mg PO DAILY 07/15/24 07/15/24 07/15/24 History
tablet,extended release 24 hr
(Toprol XL)
Review of Systems
-
Unable to Obtain full review of systems at this time due to: Other (Per HPI)
Vitals / Labs / Diagnostic Testing
Vital Signs
Temp Pulse Resp BP Pulse Ox
97.6 F 75 18 124/91 93
07/16/24 07:00 07/16/24 06:30 07/16/24 06:30 07/16/24 06:30 07/16/24 06:15
Lab Data
07/16/24 04:55
07/16/24 04:55
Laboratory Results
07/15/24
19:35
PT 13.4
INR 1.04
APTT 30.6
Diagnostic Testing:
Physical Exam
-
Exam:
Well-nourished and well-developed in no apparent distress
HEENT-atraumatic, normocephalic
Neck-supple, no JVD, no bruit
Heart-regular rate and rhythm-no murmurs, rubs or gallops
Chest-clear to auscultation, no wheezes, crackles
Back-no tenderness
Abdomen-soft, nontender, nondistended, no hepatosplenomegaly
Extremities-no cyanosis, clubbing, edema and good peripheral pulses
Integument-intact, no rashes, lesions or ecchymosis
Neurology-alert and oriented, nonfocal motor and sensory exam
Assessment
-
54-year-old male with a history of hypertension, SVT, pericarditis, presented with hypertension noted to have an SVT receiving adenosine and requiring Cardizem intravenously to control-resource conservation specialist consulted for SVT/hypertensive emergency/critical
care management 07/16/2024.
SVT status post adenosine
Hypertensive emergency-blood pressure 240/134
Mild hyperglycemia
Conditions present prior to admission:
Hypertension-follows Dr. Gomes
Factor V Leiden
Pericarditis.
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
History of PE/history of IVC filter-subsequently removed
Plan
Patient will be admitted to medical intensive care
Supplemental oxygen if needed
Monitor for end organ effect of severe hypertension
Hydralazine as needed
Labetalol as needed
Adenosine as needed for SVT
Cardizem drip initiated
Consider nicardipine drip if unable to control
Nitroprusside less attractive with potential for cyanide toxicity especially with renal insufficiency
Nitroglycerin if cardiac issues
Cardiology evaluation ongoing
Consider workup of secondary causes including renal vascular/primary hyperaldosteronism/Lennox's/pheochromocytoma/etc. if hypertension is difficult to control
DVT prophylaxis
Early nutrition
Early mobilization
If blood pressure controlled and weaned off Cardene then could be transferred out of ICU-call pulmonary if respiratory issues arise
The patient may have seen Dr. Malloy in the past-would screen for obstructive sleep apnea with significant hypertension/SVT/mild symptoms of AMALIA
Critical care statement: A total of 50 minutes of critical care time was provided for this patient today. This includes management of unstable vital signs, evaluation of the patient at bedside, reviewing the patient's pertinent medical records
including radiographs, microbiology, laboratory evaluations, and discussion with primary team, consultants, pharmacy, nutrition, physical therapy, case management, charge nurse, critical care nursing, and respiratory therapy.
Diagnostic data:
Chest x-ray 07/15/2024-NAD
CT chest 11/17/2008-normal with resolution of pleural and parenchymal effusions and bilateral parenchymal disease,
CT chest 10/24/2009-no pulmonary embolism
Echocardiogram 12/24/2023-EF 50%, no significant valvular disease
Data Reviewed
-
EKG: Report reviewed by me
Radiology: Report reviewed by me
Medical Tests (Nuc Med, Echo etc): Report reviewed by me
Labs: Labs reviewed by me
Old Records: Reviewed
Critical Care Time (in minutes): 50
--- NOTE | 2024-07-16 07:45 | CON.CAR ---
Consultation
Consultation Request
Date/Time Consultation Requested: 07/15/2024 20:50
Date/Time Consultation Performed: 07/16/2024 07:55
Requesting Provider: JAME Weir
Performing Provider: JAME Wolff for Dr. Heck
Reason for Consultation: SVT, HTN
Medical History
-
Chief Complaint: Elevated blood pressure
History of Present Illness:
Harish Lucero is a 54-year-old male (known to Dr. Gomes, his primary platform architect), with factor V Leiden, SVT/AVNRT and hypertension who presented to the emergency department 07/15/2024 with a chief complaint of elevated blood pressure
readings at home. On 07/11/2024 he presented for a routine outpatient colonoscopy. He was referred to the emergency department due to his elevated blood pressure readings. BP in triage 239/147. He had no complaints. He was treated and
discharged home. He saw his primary care physician the following day. He was prescribed valsartan 80 mg twice daily. Despite starting this medication, his blood pressure continued to increase. In triage yesterday BP 240/144. He had no visual
changes, chest pain, or headache. Overnight, he had an episode of SVT which required adenosine. He briefly required Cardene overnight.
Past Medical History
Past Medical History: Arrhythmias (SVT, AVNRT), HTN and Other (Acute pericarditis, PE, factor V Leiden)
Social History
Tobacco: Non-Smoker
Alcohol: Occasional
Drug: None
Personal:
Living: With Family
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
Family History
Family History: Reviewed & Not Pertinent (Denies early CAD and SCD.) and Other (Biological brother with hypertension, paroxysmal atrial fibrillation, and factor V Leiden)
Allergies / Home Medications
Allergy/AdvReac Type Severity Reaction Status Date / Time
hydrochlorothiazide Allergy FAST HEART Verified 07/15/24 10:27
[Hydrochlorothiazide] BEAT
lisinopril [Lisinopril] Allergy COUGH AND Verified 07/15/24 10:27
RASH
penicillin V [Penicillin V] Allergy RASH, FAST Verified 07/15/24 10:27
HEART BEAT
�Medication �Instructions �Recorded �Confirmed �Type
metoprolol succinate 100 mg 100 mg PO DAILY 07/15/24 07/15/24 History
tablet,extended release 24 hr
(Toprol XL)
Review of Systems
-
History Source: Patient
All other systems: Negative unless noted
Constitutional: No Symptoms
EENT: No Symptoms
Respiratory: No Symptoms
Cardiac: No Symptoms
Abdomen/GI: No Symptoms
: No Symptoms
Musculoskeletal: No Symptoms
Skin: No Symptoms
Neurological: No Symptoms
Endocrine: No Symptoms
Hematologic/Lymphatic: No Symptoms
Physical Exam
Vital Signs
Temp Pulse Resp BP Pulse Ox
97.6 F 75 18 124/91 93
07/16/24 07:00 07/16/24 06:30 07/16/24 06:30 07/16/24 06:30 07/16/24 06:15
Lab Results
07/16/24 04:55
07/16/24 04:55
Troponin I < 0.012 ng/ml 07/15/24 19:35
Physical Exam
General: Well Developed, Well Nourished and No Apparent Distress
HEENT: Normocephalic, Anicteric and Moist Mucous Membranes
Respiratory: Clear and Non Labored Respirations
Cardiac: S1/S2 and Regular Rhythm
Breast: Deferred by me
GI: Soft, Non Tender, Non Distended and Normal Bowel Sounds
Rectal: Deferred by Provider
Genito-urinary: No Costovertebral Tender
Musculoskeletal: No Clubbing, No Cyanosis and No Edema
Skin: Warm and Dry
Neuro: AO x 3
Hematologic/Lymphatic: No Lymphadenopathy
Psych: Calm
Impression / Plan
-
BACKGROUND: 54M with HTN and SVT presented with SVT and HTN Urgency
Interactive Digital Media Specialist: Dr. Gomes
AVNRT
-Symptomatic with a general sense of unwellness, palpitations, nausea, and diaphoresis
-Required adenosine overnight
-Continue beta-esha
-We discussed outpatient EP evaluation for ablation and he is interested
-He has not required any vagal maneuvers since last SVT episode in 10/2023
HTN Urgency
-Initially on Cardene, BP stable this morning
-Normal secondary workup in 2019
-Drug intolerances as below:
-HCTZ caused palpitations
-Lisinopril caused cough
-Diltiazem made him feel anxious
-His is a registered nurse and is able to take manual blood pressures at home
Cardiomyopathy, unspecified
-LVEF 50% 10/2023 (45-50% 2019)
-Update echocardiogram
-Abnormal T waves anteriorly, consider ischemic evaluation
Factor IV Leiden with prior PE S/P IVC filter & removal
DATA:
Transthoracic echocardiogram, 12/24/2023:
Left ventricular ejection fraction is approximately 50%, by visual assessment.
No specific regional wall motion abnormalities are noted.
Normal right ventricular size and function.
No significant valvular disease.
Sinus of Valsalva is 4.0 cm.
Data Reviewed
-
EKG: Report Reviewed by me
Medical Tests (Nuc Med, Echo etc): Report Reviewed by me (Echo as above)
Labs: Labs Reviewed by me
Old Records: Reviewed
[2024-07-16] MEDS: NORVASC 10 MG PO (08:13)
[2024-07-16] MEDS: TOPROL XL 100 MG PO (08:13)
[2024-07-16] MEDS: HEPARIN SC ×2 (08:13→19:19)
--- NOTE | 2024-07-16 09:00 | PTCARENOTE ---
Received pt awake and alert.Speech is appropriate.Denies pain.Gait is steady.OOB to chair and bathroom.SR noted.Lungs CTA.POX 97% on RA.Appetite good.Voiding in bathroom.Pt is anxious regarding BP.Plan of care discussed.
--- NOTE | 2024-07-16 13:22 | PTCARENOTE ---
Pt assessed.No change in assessment noted.Telemetry orders as per MD.Pt's at bedside.Plan of care discussed.
--- NOTE | 2024-07-16 16:04 | CM ---
CM met with Harish, his and son at bedside to discuss Advance Directive. Harish is aaox3, (I) at baseline. Explained the purpose of the document and the importance of sharing it with his family/loved ones so they are aware of his wishes in
the event he is unable to speak for himself.
Harish is aaox3, (I) at baseline. He came to the hospital with elevated BP which is recurrent;
PMH: pericarditis, hypertension, SVT.
CM will follow to assist with discharge planning needs identified through further hospitalization.
--- NOTE | 2024-07-16 16:15 | PTCARENOTE ---
Pt assessed.No change in assessment noted.
[2024-07-16] MEDS: TOPROL XL 50 MG PO (19:19)
[2024-07-16] MEDS: TRANDATE 10 MG IV (21:26)
--- NOTE | 2024-07-16 21:40 | PTCARENOTE ---
BP elevated 166/108- PRN Labetalol administered as ordered. HR in the 70's in NSR on the monitor. POX 96% on RA. Pt reports some minor indigestion post eating a burger. Denies any other complaints at this time. Pt Tele level care, pt is being moved
to IVU for further care.
[2024-07-16] MEDS: TUMS CHEWABLE TABLET 200 MG PO (22:47)
[2024-07-16] MEDS: LOPRESSOR 5 MG IV (23:50)
[2024-07-17] VITALS (16 sets, daily range): BP systolic 136–182; BP diastolic 95–117
--- NOTE | 2024-07-17 00:19 | PTCARENOTE ---
received pt from ICU. on arrival pts bp was elevated 180s/100s HR in the 70s to 80s. BP checked on multiple arms/cuff and methods. JAME Mills contacted and orders given for 5mg IV Lopressor x1. Pt oriented to the unit. ambulating as a self without
any complaints. SR on the monitor.
--- NOTE | 2024-07-17 06:46 | W.PN.HOSP.TC ---
Today's Communication/Plan
-
Likely cardiac cath on Thursday
Echo
Monitor BP
Assessment / Plan
Assessment / Plan
Physical Exam
General: Well Developed, Well Nourished and No Apparent Distress
HEENT: NormoCephalic, Moist mucous membranes and Atraumatic
Respiratory: Clear
Cardiac: S1/S2 and Regular Rhythm;
GI: Soft, Non Tender, Non Distended and Normal Bowel Sounds; No Organomegaly
Rectal: No bleeding
Musculoskeletal: No Clubbing, No Cyanosis and No Edema
Skin: No Rash
Neuro: Nonfocal/grossly intact
Psych: calm , no agitation
# History of SVT
Events over night noted
f/w cardiology recommendations.
-Continue metoprolol
# hypertensive urgency
# History of essential hypertension
-Blood pressure up to 244/134
Currently , BP is better controlled
On Amlodipine 10 mg QD & Toprol XL 100 mg QD
-EKG showed normal sinus rhythm, possible left atrial lodgment, left axis deviation, LVH
-Echo from November, showed LVEF 50%, No significant valvular disease.
-Patient did not tolerate CLAY inhibitor in the past, no improvement with valsartan
# Hypokalemia, resolved
# History of pericarditis
History of [place] filter which was since removed
-No history of confirmed DVT
Full code
DVT prophylaxis heparin
Regular diet
Total time spent to see the patient on the floor, examine the patient, review data and lab results, discuss treatment plan with patient, nursing staff around 55 minutes
Anticipated Discharge: Within 24 hours
Subjective/Interval History
-
Date of Service: July 17, 2024
No chest pain
No sob
Slept well
Objective Data
-
Vital Signs:
Vital Signs
Temp Pulse Resp BP Pulse Ox
98.2 F 64 18 138/95 98
07/17/24 04:45 07/17/24 05:00 07/17/24 04:45 07/17/24 04:51 07/17/24 04:45
I&O
07/15/24 07/16/24 07/17/24
06:59 06:59 06:59
Intake Total 75 / 75 1420 / 1420
Output Total 2400 / 2400
Balance -2325 / -2325 1420 / 1420
--- NOTE | 2024-07-17 08:20 | PTCARENOTE ---
Assumed care of pt from prev nsg shift; Pt AAOx3 w/no c/o CP or SOB. Pt's BP elevated this AM 161/109, w/HR in the 70's. Pt reported being up moving around the rm. Placed cuff on pt & had pt relax in bed for approx 30 mins & rechecked BP remotely by
starting BP from central monitor outside the rm. Pt's BP much better at 154/98. Pt's BP overnight much better when taken from central monitor w/o staff in the rm. Pt is SR on telemetry monitoring. Pt w/call espinosa within reach & no addtl needs at this
time.
--- NOTE | 2024-07-17 09:39 | W.PN.CD ---
Today's Communication / Plan
-
- Continue Almodipine and Toprol for now.
- May add HCTZ in near future if need (intolerant in thepast but should tolerate now with toprol on board)
Impression / Plan
-
BACKGROUND: 54M with HTN and SVT presented with SVT and HTN Urgency
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
AVNRT
-Symptomatic with a general sense of unwellness, palpitations, nausea, and diaphoresis
-Required adenosine overnight
-Continue beta-esha
-We discussed outpatient EP evaluation for ablation and he is interested
-He has not required any vagal maneuvers since last SVT episode in 10/2023
HTN Urgency
-Initially on Cardene, BP stable this morning
-On Amlodipine 10 mg QD and Metoprolol 50 mg BID.
-Normal secondary workup in 2019
-Drug intolerances as below:
-HCTZ caused palpitations
-Lisinopril caused cough
-Diltiazem made him feel anxious
-His is a registered nurse and is able to take manual blood pressures at home
Cardiomyopathy, unspecified
-LVEF 50% 10/2023 (45-50% 2019)
-Update echocardiogram
-Abnormal T waves anteriorly, consider ischemic evaluation
Factor IV Leiden with prior PE S/P IVC filter & removal
DATA:
Transthoracic echocardiogram, 12/24/2023:
Left ventricular ejection fraction is approximately 50%, by visual assessment.
No specific regional wall motion abnormalities are noted.
Normal right ventricular size and function.
No significant valvular disease.
Sinus of Valsalva is 4.0 cm.
Physical Exam
Vital Signs/Labs
Vital Signs
Temp Pulse Resp BP Pulse Ox
98 F 74 20 154/98 99
07/17/24 07:19 07/17/24 08:18 07/17/24 07:19 07/17/24 08:18 07/17/24 07:19
07/16/24 07/17/24 07/18/24
06:59 06:59 06:59
Actual Weight 85.8 kg
07/16/24 04:55
07/16/24 04:55
PT 13.4 Sec (11.4-14.6) 07/15/24 19:35
INR 1.04 07/15/24 19:35
APTT 30.6 Sec (23.4-35.0) 07/15/24 19:35
Magnesium 2.0 mg/dl (1.6-2.3) 07/16/24 04:55
LAB Results
07/15/24
19:35
Troponin I < 0.012
Physical Exam
Constitutional: No acute distress and Comfortable
EENT: Anicteric and Moist mucous membranes
Cardiovascular: Rhythm & rate is regular, Pedal edema is absent and JVD pressure is normal
Respiratory: Respiratory effort normal, Lungs clear to auscul., Wheeze Absent and Crackles Absent
GI: Non tender and Normal bowel sounds
Neuro/Psych: Alert, Oriented, AO x 3 and Motor deficits absent
Data Reviewed
-
Date of Service: July 17, 2024
Medical Decision Making: Reviewed Test Results and Independent Historian Assessment
EKG: Tracing Personally Visualized and interpreted
Echo: Report Reviewed by me
Labs: Labs Reviewed by me
Old Records: Reviewed
[2024-07-17] MEDS: NORVASC 10 MG PO (09:46)
[2024-07-17] MEDS: HEPARIN SC ×2 (09:47→20:10)
[2024-07-17] MEDS: TOPROL XL 50 MG PO ×2 (09:47→19:56)
[2024-07-17] MEDS: TRANDATE 10 MG IV (15:10)
[2024-07-17] MEDS: FLUSH (NSS) 2 FLUSH IV (15:11)
[2024-07-17] MEDS: ORETIC 25 MG PO (17:41)
--- NOTE | 2024-07-17 20:15 | PTCARENOTE ---
Received patient at change of shift. Patient awake, alert, and oriented, sitting in bed. BP 163/103, NSR 90s, 97% on room air. Patient declined Heparin subQ-- see MAR. Discussed with patient the reason for the anticoagulant. He verbalized
understanding, but felt because he has been up and walking, he does not need to take it. Reminded patient he is NPO after midnight for cath, patient verbalized understanding. Call espinosa within reach.
[2024-07-18] VITALS (8 sets, daily range): BP systolic 126–155; BP diastolic 75–106
[2024-07-18 05:12] LABS: Hematocrit 43.3 % (39.0-52.0); Hemoglobin 15.8 g/dL (13.0-18.0); Mean Corp Hgb Conc. 36.5 g/dL (33.0-37.0); Mean Corpuscular Volume 87.8 fL (80.0-94.0); Mean Platelet Volume 9.4 fL (7.4-10.4); Platelet Count 283 10^3/uL (130-400); Red Blood Cell Count 4.93 10^6/uL (4.70-6.10); Red Cell Dist. Width 11.8 % (11.5-14.5); White Blood Cell Count 9.7 10^3/uL (4.8-10.8)
[2024-07-18 05:29] LABS: Blood Urea Nitrogen 24 mg/dl (9-20); Calcium 9.7 mg/dl (8.4-10.2); Carbon Dioxide 22 mmol/L (22-30); Chloride 101 mmol/L (98-107); Estimated Creatinine Clearance 93 ml/min; Glucose 106 mg/dl (70-99); Sodium 137 mmol/L (135-145); eGFR > 60.00
--- NOTE | 2024-07-18 07:43 | W.PN.HOSP.TC ---
Addendum entered and electronically signed by Jayy Nj MD 07/18/24 20:40:
Attending Addendum-
I saw and evaluated the patient. I reviewed the resident�s note and agree with findings and plan as documented in the resident�s note. Sub: Patient feels fatigued and anxious. BPs elevated over last 24 hours. Denies SOB/CP Full 12 point ROS reviewed
and negative except as documented Exam: Vitals reviewed in chart GEN-NAD heart RRR lungs clear abd soft LE no edema
# AVNRT/SVT
-Continue Toprol
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
-Cards on board
# HTN Emergency/History of essential hypertension
-BP is better controlled
-cont Amlodipine Toprol XL and HCTZ added despite h/o intolerance
-Echo 07/18-Mildly reduced left ventricular systolic function. Left ventricular ejection
fraction is 45-50%. (decreased from 50%)
Mild concentric left ventricular hypertrophy.
# Hypokalemia, resolved
- recheck BMP in am
# EKG changes/ST abnormalities
- cont asa
- now with decreased EF from previous
- warrants cath for eval
- NPO pMN for cath on 07/19
# History of pericarditis
- no signs of recurrence
# History of [place] filter which was since removed
-No history of confirmed DVT
Full code
DVT prophylaxis heparin
Regular diet/NPO after midnight
Time spent coordinating care, review of plan of care with resident, personally reviewed records in EMR, med rec, consults, notes, labs, radiology, d/w nursing, cards and family � 58 mins
Original Note:
Today's Communication/Plan
-
Cardiac catheterization
echocardiogram
Assessment / Plan
Assessment / Plan
Assessment:
54-year-old male presented for asymptomatic hypertensive urgency, blood pressure in ED was 244/134. Also having SVT episodes heart rates into 200s.
Plan:
#SVT
Multiple episodes SVT during stay, resolved with adenosine
Currently patient is in normal sinus rhythm
Continue metoprolol
Continue monitoring on telemetry
#Potential ischemic cardiac changes
EKG demonstrated potential ischemic cardiac changes, T wave inversions in multiple leads
Cardiac catheterization pending
Echocardiogram pending
# hypertensive urgency
# History of essential hypertension
Blood pressure up to 244/134 on admission
Initially on Cardizem drip, stable at this morning
Blood pressure 133/90 this a.m.
Continue metoprolol 50 twice daily and amlodipine 10 mg daily and hydrochlorothiazide 25 mg
Patient intolerant to multiple blood pressure medications in past, lisinopril, hydrochlorothiazide, diltiazem
EKG showed normal sinus rhythm, possible left atrial lodgment, left axis deviation, LVH and T wave abnormalities
Echo from November, showed LVEF 50%, No significant valvular disease.
Recheck echocardiogram pending
# Hypokalemia
Resolved
4.0 this a.m.
# Factor V Leiden
History of [place] filter which was since removed
No history of confirmed DVT
Not currently requiring anticoagulation
Full code
DVT prophylaxis heparin
Regular diet
Anticipated Discharge: 24 - 48 hours
Subjective/Interval History
-
Date of Service: July 18, 2024
Patient was made n.p.o. after midnight
Episode of bradycardia 49-50 overnight
Otherwise no acute events
Objective Data
-
Labs:
Laboratory Results
07/18/24 07/18/24
04:41 04:42
WBC 9.7
Hgb 15.8
Hct 43.3
Plt Count 283
Sodium 137
Potassium 4.0
Chloride 101
Carbon Dioxide 22
BUN 24 H
Creatinine 1.0
Glucose 106 H
Calcium 9.7
Vital Signs:
Vital Signs
Temp Pulse Resp BP Pulse Ox
98.6 F 73 16 133/90 99
07/18/24 06:04 07/18/24 06:04 07/18/24 06:04 07/18/24 04:36 07/18/24 06:04
I&O
07/17/24 07/18/24 07/19/24
06:59 06:59 06:59
Intake Total 1420 / 1420 960 / 960
Balance 1420 / 1420 960 / 960
Review of Systems
-
History Source: Patient
Constitutional: Reports No Symptoms
Respiratory: Reports No Symptoms
Cardiac: Reports Palpitations (Reports palpitations with no clear trigger, not currently feeling symptoms)
Abdomen/GI: Reports No Symptoms
Physical Exam
-
General: Well Developed, No Apparent Distress and Comfortable
Respiratory: Clear to Auscultation
Cardiac: Regular Rhythm and S1/S2; Negative Murmur
GI: Soft, Nontender, Nondistended and Normal Bowel Sounds
Musculoskeletal: No Edema
Skin: Warm and Dry
Neuro: Awake, Alert, Oriented and AO x 3
Psych: Calm and Intact Judgement/Insight
Data Reviewed
-
Diagnostic Radiology: Report Reviewed by me and Discussed with Physician
[2024-07-18] MEDS: TOPROL XL 50 MG PO ×2 (08:25→20:58)
[2024-07-18] MEDS: NORVASC 10 MG PO (08:25)
[2024-07-18] MEDS: HEPARIN 5000 UNITS SC (08:25)
[2024-07-18] MEDS: ORETIC 25 MG PO (08:26)
--- NOTE | 2024-07-18 09:53 | PTCARENOTE ---
received patient this am, monitor shows NSR, VSS. patient remains NPO for heart cath today.
--- NOTE | 2024-07-18 15:56 | CM ---
spoke to pt in room, he is prev indep, lives with his in a 2 story home with no steps to enter. he denies any dme's or dc planning needs. plan is for dc to home when medically stable.
--- NOTE | 2024-07-18 18:17 | W.PN.CD ---
Today's Communication / Plan
-
LHC canceled due to photonic laboratory technician emergencies, please make NPO@MN
Impression / Plan
-
BACKGROUND: 54M with HTN and SVT presented with SVT and HTN Urgency. Status post adenosine for symptomatic SVT with post-conversion ECGs demonstrating diffuse ST abnormalities.
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
AVNRT
-Symptomatic with a general sense of unwellness, palpitations, nausea, and diaphoresis
-Required adenosine overnight, sinus since then
-Continue beta-esha
-We discussed outpatient EP evaluation for ablation and he is interested
-He has not required any vagal maneuvers since last SVT episode in 10/2023
ST abnormality
-LHC planned for 07/18/2024
-echo with mildly reduced EF but no wall motion abnormalities
HTN Urgency
-Initially on Cardene, BP stable this morning
-On Amlodipine 10 mg QD and Metoprolol 50 mg BID.
-Normal secondary workup in 2019
-Drug intolerances as below:
-HCTZ caused palpitations
-Lisinopril caused cough
-Diltiazem made him feel anxious
-His is a registered nurse and is able to take manual blood pressures at home
Cardiomyopathy, unspecified
-LVEF 50% 10/2023 (45-50% 2019)
-EF now 45-50% without RWMA
-Update echocardiogram
-Abnormal T waves anteriorly, consider ischemic evaluation
Factor IV Leiden with prior PE S/P IVC filter & removal
DATA:
TTE 07/18/2024
Mildly reduced left ventricular systolic function. Left ventricular ejection
fraction is 45-50%.
Mild concentric left ventricular hypertrophy.
Stage I diastolic dysfunction suggestive of abnormal relaxation.
No significant valve diease.
Mildly dilated aortic root. Sinus of Valsalva measures 4.2 cm.
Compared to 12/24/23: LVEF is similar to slightly lower (prior 50%). Prior SOV
measurement was 4.0 cm.
Transthoracic echocardiogram, 12/24/2023:
Left ventricular ejection fraction is approximately 50%, by visual assessment.
No specific regional wall motion abnormalities are noted.
Normal right ventricular size and function.
No significant valvular disease.
Sinus of Valsalva is 4.0 cm.
Physical Exam
Vital Signs/Labs
Vital Signs
Temp Pulse Resp BP Pulse Ox
36.6 C 83 18 148/100 98
07/18/24 15:27 07/18/24 18:00 07/18/24 11:19 07/18/24 13:58 07/18/24 11:19
07/18/24 04:41
07/18/24 04:42
PT 13.4 Sec (11.4-14.6) 07/15/24 19:35
INR 1.04 07/15/24 19:35
APTT 30.6 Sec (23.4-35.0) 07/15/24 19:35
Magnesium 2.0 mg/dl (1.6-2.3) 07/18/24 04:42
LAB Results
07/15/24
19:35
Troponin I < 0.012
Physical Exam
Constitutional: No acute distress
Cardiovascular: Rhythm & rate is regular
Respiratory: Respiratory effort normal
Neuro/Psych: Alert, Oriented and AO x 3
Data Reviewed
-
Date of Service: July 18, 2024
Medical Decision Making: Reviewed Test Results
EKG: Report Reviewed by me
Echo: Report Reviewed by me
Labs: Labs Reviewed by me
[2024-07-18] MEDS: LOW STRENGTH ASPIRIN PO (18:30)
--- NOTE | 2024-07-18 18:30 | PTCARENOTE ---
Addendum entered by Catherine Palacios RN 07/18/24 18:53:
correction patient decided to take the 324mg of po Aspirin.
Original Note:
patient stated that I cannot take aspirin because it upsets my stomach, TT Fariha Orozco LOCAL SALES MANAGER, will not give aspirin tonight but patient will get aspirin in am.
[2024-07-18] MEDS: LOW STRENGTH ASPIRIN 324 MG PO (18:50)
[2024-07-18] MEDS: HEPARIN SC (21:01)
--- NOTE | 2024-07-18 23:50 | PTCARENOTE ---
Received patient at change of shift. Patient awake, alert, and oriented sitting in the chair. Patient was having dinner. BP 128/75, NSR 80s, 99% on room air. Discussed patient being NPO after midnight for cath tomorrow. Patient verbalized
understanding. Call espniosa within reach.
[2024-07-19] VITALS (11 sets, daily range): BP systolic 128–153; BP diastolic 84–101
[2024-07-19 04:55] LABS: Hematocrit 41.8 % (39.0-52.0); Hemoglobin 15.2 g/dL (13.0-18.0); Mean Corp Hgb Conc. 36.4 g/dL (33.0-37.0); Mean Corpuscular Hgb 32.1 pg (27.0-31.0); Mean Corpuscular Volume 88.4 fL (80.0-94.0); Mean Platelet Volume 9.3 fL (7.4-10.4); Platelet Count 292 10^3/uL (130-400); Red Blood Cell Count 4.73 10^6/uL (4.70-6.10); Red Cell Dist. Width 11.8 % (11.5-14.5); White Blood Cell Count 8.4 10^3/uL (4.8-10.8)
[2024-07-19 05:20] LABS: Blood Urea Nitrogen 29 mg/dl (9-20); Calcium 9.2 mg/dl (8.4-10.2); Carbon Dioxide 22 mmol/L (22-30); Chloride 101 mmol/L (98-107); Estimated Creatinine Clearance 93 ml/min; Glucose 98 mg/dl (70-99); Potassium 3.6 mmol/L (3.5-5.1); Sodium 138 mmol/L (135-145); eGFR > 60.00
--- NOTE | 2024-07-19 07:18 | W.PN.HOSP.TC ---
Addendum entered and electronically signed by Jayy Nj MD 07/19/24 20:29:
Attending Addendum-
I saw and evaluated the patient. I reviewed the resident�s note and agree with findings and plan as documented in the resident�s note. Sub:NAEON, 'i feel pretty good doc' Denies SOB/CP Full 12 point ROS reviewed and negative except as documented
Exam: Vitals reviewed in chart GEN-NAD heart RRR lungs clear abd soft LE no edema
# AVNRT/SVT
-Continue Toprol
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
-Cards on board
# HTN Emergency/History of essential hypertension
-BP is better controlled
-cont Amlodipine Toprol XL and HCTZ added despite h/o intolerance tolerating well
-Echo 07/18-Mildly reduced left ventricular systolic function. Left ventricular ejection
fraction is 45-50%. (decreased from 50%)
Mild concentric left ventricular hypertrophy.
# Hypokalemia, resolved
- recheck BMP in am
# EKG changes/ST abnormalities/decreased EF
- DC asa
- cath 07/19-
1:� Systemic hypertension
2:� Mild anterior hypokinesis with EF 44%
3. Borderline aortic root enlargement
4. No significant CAD
5. Etiology of mild LV dysfunction unclear but could represent long-term hypertension inadequately controlled
# History of pericarditis
- no signs of recurrence
# History of [place] filter which was since removed
-No history of confirmed DVT
Full code
DVT prophylaxis heparin
Resume diet after cath
Dispo DC home in am
Time spent coordinating care, review of plan of care with resident, personally reviewed records in EMR, med rec, consults, notes, labs, radiology, d/w nursing, cards and � 54 mins
Original Note:
Today's Communication/Plan
-
Continue Toprol XL, valsartan, HCTZ
Potential discharge tomorrow.
Assessment / Plan
Assessment / Plan
Impression: 54-year-old male with PMH of HTN and SVT who presented to ED on 07/15/2022 for with SVT and hypertensive urgency.
Assessment/plan:
# AVNRT
-Symptomatic at presentation with palpitation, diaphoresis and nausea.
-Converted on adenosine.
-Currently sinus.
-Continue Toprol-XL.
-Continue telemetry.
-Cardiology following.
Marked ST abnormalities on EKG.
-Echocardiography 07/18/2022 with LVEF 45 to 50%.
-Left heart cath 07/19/2024 with mild anterior hypokinesis with EF 44%, no significant CAD.
-Continue treatment for HTN.
#Hypertensive urgency
-BP stable.
-Continue amlodipine, Toprol-XL, valsartan, HCTZ.
-Reports no further palpitations with HCTZ.
# Factor V Leiden
History of [place] filter which was since removed
Full code
DVT prophylaxis heparin
DATA:
Left heart cath 07/17/2024:
1:�Systemic hypertension
2:�Mild anterior hypokinesis with EF 44%
3. Borderline aortic root enlargement
4. No significant CAD
5. Etiology of mild LV dysfunction unclear but could represent long-term hypertension inadequately controlled
TTE 07/18/2024
Mildly reduced left ventricular systolic function. Left ventricular ejection
fraction is 45-50%.
Mild concentric left ventricular hypertrophy.
Stage I diastolic dysfunction suggestive of abnormal relaxation.
No significant valve diease.
Mildly dilated aortic root. Sinus of Valsalva measures 4.2 cm.
Compared to 12/24/23: LVEF is similar to slightly lower (prior 50%). Prior SOV
measurement was 4.0 cm.
Transthoracic echocardiogram, 12/24/2023:
Left ventricular ejection fraction is approximately 50%, by visual assessment.
No specific regional wall motion abnormalities are noted.
Normal right ventricular size and function.
No significant valvular disease.
Sinus of Valsalva is 4.0 cm.
Anticipated Discharge: Within 24 hours
Subjective/Interval History
-
Date of Service: July 19, 2024
Patient seen and examined lying comfortably in bed in no acute pulmonary distress. Reports feeling better and has no acute complaints. He is waiting for left heart cath today and is optimistic. He denies any chest pain, palpitations, shortness of
breath, headaches, vision changes.
Objective Data
-
Labs:
Laboratory Results
07/19/24
04:36
WBC 8.4
Hgb 15.2
Hct 41.8
Plt Count 292
Sodium 138
Potassium 3.6
Chloride 101
Carbon Dioxide 22
BUN 29 H
Creatinine 1.0
Glucose 98
Calcium 9.2
Vital Signs:
Vital Signs
Temp Pulse Resp BP Pulse Ox
97.8 F 76 16 136/84 97
07/19/24 04:49 07/19/24 04:49 07/19/24 04:49 07/19/24 04:49 07/19/24 04:49
I&O
07/18/24 07/19/24 07/20/24
06:59 06:59 06:59
Intake Total 960 / 960 480 / 480
Balance 960 / 960 480 / 480
Review of Systems
-
History Source: Patient
All other systems: Not reviewed unless documented
Constitutional: Reports No Symptoms
Respiratory: Reports No Symptoms
Cardiac: Reports Palpitations (Reports palpitations with no clear trigger, not currently feeling symptoms)
Abdomen/GI: Reports No Symptoms
Neuro: Reports No Symptoms; Denies Headache or Lightheadedness
Physical Exam
-
General: Well Developed, No Apparent Distress and Comfortable
Respiratory: Clear to Auscultation
Cardiac: Regular Rhythm and S1/S2; Negative Murmur
GI: Soft, Nontender, Nondistended and Normal Bowel Sounds
Musculoskeletal: No Clubbing and No Edema
Skin: Warm and Dry
Neuro: Awake, Alert, Oriented and AO x 3
Psych: Calm and Intact Judgement/Insight
Data Reviewed
-
Diagnostic Radiology: Image personally visualized and interpreted and Report Reviewed by me
Labs: Labs Reviewed by me and Discussed with Physician
Old Records: Reviewed
[2024-07-19] MEDS: HEPARIN SC ×2 (07:27→20:42)
[2024-07-19] MEDS: NORVASC 10 MG PO (07:36)
[2024-07-19] MEDS: TOPROL XL 50 MG PO ×2 (07:37→20:30)
[2024-07-19] MEDS: ORETIC 25 MG PO (07:37)
[2024-07-19] MEDS: LOW STRENGTH ASPIRIN 81 MG PO (07:38)
--- NOTE | 2024-07-19 10:06 | PTCARENOTE ---
Rec'd pt at handoff. AOX3 and pleasant. Tele- SR. VSS. No c/o pain/discomfort at this time. Pt verbalizes understanding that he is NPO for cath today.
--- NOTE | 2024-07-19 12:46 | PTCARENOTE ---
Report given to environmental laboratory technician DAVID Barriga.
--- NOTE | 2024-07-19 13:44 | PN.CDI ---
CDI
- -
CDI:
Physician Documentation Request
Admit Date: 07/15/24 13:40
Dear Doctor Mehrdad,
07/18 hospitalist progress note contains a diagnosis of HTN emergency. Further down in the same note it states 'Hypertensive urgency- blood pressure 244/134 on admission'
In an attempt to clarify potentially conflicting documentation, please clarify the diagnosis associated with the hypertension:
Hypertensive Urgency - B/P is severely elevated (systolic > or = to 180 or diastolic > or = to 110) but there is no associated organ damage. Symptoms may include: headache, shortness of breath, nosebleeds, severe anxiety. Treatment usually consists
of addition to or adjusting of oral medications and does not generally necessitate hospitalization.
Hypertensive Emergency - B/P is severely elevated (systolic > or = to 180 or diastolic > or = to 110) but can occur at lower levels especially in patients who did not previously have high B/P. There is usually associated organ damage. Symptoms may
include: memory loss, LOC, CVA, CA, angina, renal failure, pulmonary edema. Generally requires more aggressive treatment and a hospitalization.
Hypertensive Crisis - an acute elevation in B/P that can lead to organ damage. Broad term that is further differentiated to include urgency or emergency based on presence of organ damage.
Other (please specify)
Use of terms such as suspected, likely, concern for, or probable (associated with a specific diagnosis that is being evaluated, monitored, or treated as if it exists) are acceptable and can be coded in the inpatient setting, when documented at the
time of discharge.
Thank you,
Nisa Gee RN, BSN
CDI Specialist
francia txt
Please use your independent medical judgment in providing your response.
--- NOTE | 2024-07-19 13:50 | ITS.CL.CATH ---
Hardware Design Engineer - Catheterization
Cardiac Catheterization
Procedure Report:
CARDIAC CATHETERIZATION REPORT
Date of Procedure: 07/19/2024
Referring: Benjamin MD
�
HEMODYNAMIC DATA
AO: 152/96
LV: 152/17
�
LEFT VENTRICULOGRAPHY: Mild anterior hypokinesis with EF 44%. The aortic root appears mildly enlarged and the ascending aorta is not well-visualized
�
CORONARY ANGIOGRAPHY
Dominance: Right
Left Main: Normal
LAD: Trivial luminal irregularities
Circumflex: Trivial luminal irregularities
RCA: Nonselective injection of this nondominant vessel due to mild innominate artery spasm demonstrating no evidence of significant obstruction
�
Closure Device: None-the procedure was performed via the right radial artery. The Yuriy's test was normal prior to the procedure.
�
Radiation (mGy): 621
DAP (cm2.Gy): 48/9
Fluoroscopy time: 10.6 minutes
�
CONCLUSIONS
1:�Systemic hypertension
2:�Mild anterior hypokinesis with EF 44%
3. Borderline aortic root enlargement
4. No significant CAD
5. Etiology of mild LV dysfunction unclear but could represent long-term hypertension inadequately controlled
�
�
Copy to: Ricci Heck MD, Mike Belle MD
�
Ant Contreras MD, [facility], [facility]
--- NOTE | 2024-07-19 13:57 | PTCARENOTE ---
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 R radial band on w/ positive radial pulse. Activity restrictions reviewed. Verbalizes understanding.
[2024-07-19] MEDS: NSS 1000 IV (14:00)
--- NOTE | 2024-07-19 20:30 | PTCARENOTE ---
Received patient at change of shift. Patient OOB, son and daughter bedside. Right radial site clean, dry, and intact-- soft with no hematoma. Patient denies any chest pain. BP 140/94, NSR 75-85, 96% on room air. Discussed plan of care. Patient
verbalized understanding. Call espinosa within reach.
[2024-07-20 00:19] VITALS: BP 136/88
[2024-07-20 03:56] VITALS: BP 136/84
[2024-07-20 04:21] LABS: Hematocrit 41.2 % (39.0-52.0); Hemoglobin 15.2 g/dL (13.0-18.0); Mean Corp Hgb Conc. 36.9 g/dL (33.0-37.0); Mean Corpuscular Hgb 31.9 pg (27.0-31.0); Mean Corpuscular Volume 86.6 fL (80.0-94.0); Mean Platelet Volume 9.5 fL (7.4-10.4); Platelet Count 295 10^3/uL (130-400); Red Blood Cell Count 4.76 10^6/uL (4.70-6.10); Red Cell Dist. Width 11.6 % (11.5-14.5); White Blood Cell Count 7.7 10^3/uL (4.8-10.8)
[2024-07-20 04:32] LABS: Blood Urea Nitrogen 27 mg/dl (9-20); Calcium 9.2 mg/dl (8.4-10.2); Carbon Dioxide 22 mmol/L (22-30); Chloride 100 mmol/L (98-107); Estimated Creatinine Clearance 103 ml/min; Glucose 108 mg/dl (70-99); Potassium 3.7 mmol/L (3.5-5.1); Sodium 138 mmol/L (135-145); eGFR > 60.00
[2024-07-20 08:46] VITALS: BP 150/100
--- NOTE | 2024-07-20 08:50 | W.PN.CD ---
Today's Communication / Plan
-
stop amlodipine
start entresto
eventual MRA for now continue hctz
Continue bb
f/u in the next 1-2 weeks with renal panel in 7-14 days prior to visit
Impression / Plan
-
BACKGROUND: 54M with HTN and SVT presented with SVT and HTN Urgency. Status post adenosine for symptomatic SVT with post-conversion ECGs demonstrating diffuse ST abnormalities.
Outside Laborer: Dr. Gomes
AVNRT
-Symptomatic with a general sense of unwellness, palpitations, nausea, and diaphoresis
-Required adenosine overnight, sinus since then
-Continue beta-esha
-We discussed outpatient EP evaluation for ablation and he is interested
-He has not required any vagal maneuvers since last SVT episode in 10/2023
ST abnormality
-C 07/18/2024 without e/o of obstructive disease just trivial irregularities.
-echo with mildly reduced EF but no wall motion abnormalities
HTN Urgency
-Initially on Cardene, BP stable this morning
-On Amlodipine 10 mg QD and Metoprolol 50 mg BID.
-in the past he has not tolerated amlodpine >2.5mg will transition to Entresto
-given CMY will start Entresto
-Normal secondary workup in 2019
-Drug intolerances as below:
-HCTZ caused palpitations---tolerating now, but will transition to MRA when Entresto uptitrated given CMY
-Lisinopril caused cough
-Diltiazem made him feel anxious
-His is a registered nurse and is able to take manual blood pressures at home
Cardiomyopathy, unspecified
-LVEF 50% 10/2023 (45-50% 2019)
-EF now 45-50% without RWMA
-cath without e/o of obstructive disease just trivial irregularities.
-will add entresto
-eventual MRA
-consider but for now hold off on SGLT2i, as with many med intolerances will make one change at a time.
Factor IV Leiden with prior PE S/P IVC filter & removal
Subjective:
he feels great. He denies cp or sob
DATA:
TTE 07/18/2024
Mildly reduced left ventricular systolic function. Left ventricular ejection
fraction is 45-50%.
Mild concentric left ventricular hypertrophy.
Stage I diastolic dysfunction suggestive of abnormal relaxation.
No significant valve diease.
Mildly dilated aortic root. Sinus of Valsalva measures 4.2 cm.
Compared to 12/24/23: LVEF is similar to slightly lower (prior 50%). Prior SOV
measurement was 4.0 cm.
Transthoracic echocardiogram, 12/24/2023:
Left ventricular ejection fraction is approximately 50%, by visual assessment.
No specific regional wall motion abnormalities are noted.
Normal right ventricular size and function.
No significant valvular disease.
Sinus of Valsalva is 4.0 cm.
Physical Exam
Vital Signs/Labs
Vital Signs
Temp Pulse Resp BP Pulse Ox
97.7 F 73 16 136/84 98
07/20/24 08:44 07/20/24 08:44 07/20/24 08:44 07/20/24 03:56 07/20/24 08:44
07/20/24 03:20
07/20/24 03:20
PT 13.4 Sec (11.4-14.6) 07/15/24 19:35
INR 1.04 07/15/24 19:35
APTT 30.6 Sec (23.4-35.0) 07/15/24 19:35
Magnesium 2.0 mg/dl (1.6-2.3) 07/18/24 04:42
Physical Exam
Constitutional: No acute distress
Cardiovascular: Rhythm & rate is regular, Pedal edema is absent, JVD pressure is normal and Systolic murmur absent
Respiratory: Respiratory effort normal, Lungs clear to auscul., Wheeze Absent, Crackles Absent and Rhonchi Absent
Neuro/Psych: AO x 3
Other: Cardiac Device Site (RRA site looks well healed)
Data Reviewed
-
Date of Service: July 20, 2024
Medical Decision Making: Test Interpretation and Review of Case with other Provider (Dr Lora, discharge plan and medications. )
X-Ray/CT/US/MRI/NUC/PET: Discussed with Physician
--- NOTE | 2024-07-20 10:01 | W.PN.HOSP.TC ---
Addendum entered and electronically signed by Jayy Nj MD 07/21/24 00:02:
Attending Addendum-
I saw and evaluated the patient. I reviewed the resident�s note and agree with findings and plan as documented in the resident�s note. Sub: [id number], ready to g ohome. Denies SOB/CP Full 12 point ROS reviewed and negative except as documented Exam:
Vitals reviewed in chart GEN-NAD heart RRR lungs clear abd soft LE no edema
# AVNRT/SVT
-Continue Toprol
-was given adenosine during [employer] which resolved event
-Cards on board
# HTN Emergency/History of essential hypertension
-BP is better controlled
-cont Amlodipine Toprol XL and HCTZ added despite h/o intolerance tolerating well
-Echo 07/18-Mildly reduced left ventricular systolic function. Left ventricular ejection
fraction is 45-50%. (decreased from 50%)
Mild concentric left ventricular hypertrophy.
# Hypokalemia, resolved
- recheck BMP in am
# EKG changes/ST abnormalities/Cardiomyopathy EF 44%
- DC asa
- cath 07/19-
1:� Systemic hypertension
2:� Mild anterior hypokinesis with EF 44%
3. Borderline aortic root enlargement
4. No significant CAD
5. Etiology of mild LV dysfunction unclear but could represent long-term hypertension inadequately controlled
- start entresto and eventual MRA
# History of pericarditis
- no signs of recurrence
# History of Georgie filter which was since removed
-No history of confirmed DVT
Full code
DVT prophylaxis heparin
Resume diet after cath
Dispo DC home
Time spent coordinating care, DC planning, review of DC plan of care with resident, transition of care, review of records, med rec/scripts sent electronically, consults, notes, d/w consultants, nursing, family, and CM� 36 mins
Original Note:
Today's Communication/Plan
-
Discharge home with on new blood pressure medications, blood pressure log and cardiology/PCP follow-up
Assessment / Plan
Assessment / Plan
Impression: 54-year-old male with PMH of HTN and SVT who presented to ED on 07/15/2022 for with SVT and elevated blood pressures.
Assessment/plan:
# AVNRT
Symptomatic presentation with palpitations, diaphoresis and nausea
Multiple episodes SVT during stay, resolved with adenosine
Currently patient is in normal sinus rhythm
Continue metoprolol
Continue monitoring on telemetry
Cardiology following.
Marked ST abnormalities on EKG.
EKG demonstrated potential ischemic cardiac changes, T wave inversions in multiple leads
Echocardiography 07/18/2022 with LVEF 45 to 50%. Previous echo 12/24/2023 demonstrated EF of 50
Left heart cath 07/19/2024 with mild anterior hypokinesis with EF 44%, no significant CAD.
Cardiology believes etiology may be due to uncontrolled hypertension
Continue treatment for HTN.
#Hypertensive emergency
Patient has mild anterior hypokinesis which is new on echo, cardiology believes it is likely due to uncontrolled hypertension
BP 136/84 this morning
Cardiology changed blood pressure medications to include metoprolol succinate 50 BID, hydrochlorothiazide 25 and Entresto 49�51 BID
Patient had allergy listed for hydrochlorothiazide including palpitations, currently has no palpitations on hydrochlorothiazide
# Factor V Leiden
History of [place] filter which was since removed
No history of confirmed DVT
No need for anticoagulation at this time
Full code
DVT prophylaxis heparin
DATA:
Left heart cath 07/17/2024:
1:�Systemic hypertension
2:�Mild anterior hypokinesis with EF 44%
3. Borderline aortic root enlargement
4. No significant CAD
5. Etiology of mild LV dysfunction unclear but could represent long-term hypertension inadequately controlled
TTE 07/18/2024
Mildly reduced left ventricular systolic function. Left ventricular ejection
fraction is 45-50%.
Mild concentric left ventricular hypertrophy.
Stage I diastolic dysfunction suggestive of abnormal relaxation.
No significant valve diease.
Mildly dilated aortic root. Sinus of Valsalva measures 4.2 cm.
Compared to 12/24/23: LVEF is similar to slightly lower (prior 50%). Prior SOV
measurement was 4.0 cm.
Transthoracic echocardiogram, 12/24/2023:
Left ventricular ejection fraction is approximately 50%, by visual assessment.
No specific regional wall motion abnormalities are noted.
Normal right ventricular size and function.
No significant valvular disease.
Sinus of Valsalva is 4.0 cm.
Anticipated Discharge: Today
Subjective/Interval History
-
Date of Service: July 20, 2024
No acute events overnight
Objective Data
-
Labs:
Laboratory Results
07/20/24
03:20
WBC 7.7
Hgb 15.2
Hct 41.2
Plt Count 295
Sodium 138
Potassium 3.7
Chloride 100
Carbon Dioxide 22
BUN 27 H
Creatinine 0.9
Glucose 108 H
Calcium 9.2
Vital Signs:
Vital Signs
Temp Pulse Resp BP Pulse Ox
97.7 F 73 16 150/100 98
07/20/24 08:44 07/20/24 09:00 07/20/24 08:44 07/20/24 08:46 07/20/24 08:44
I&O
07/19/24 07/20/24 07/21/24
06:59 06:59 06:59
Intake Total 480 / 480 387 / 387
Balance 480 / 480 387 / 387
Review of Systems
-
History Source: Patient
Constitutional: Reports No Symptoms
Respiratory: Reports No Symptoms
Cardiac: Reports No Symptoms
Abdomen/GI: Reports No Symptoms
Physical Exam
-
General: Well Developed and Comfortable
Respiratory: Clear to Auscultation
Cardiac: Regular Rhythm and S1/S2
GI: Soft, Nontender, Nondistended and Normal Bowel Sounds
Musculoskeletal: No Edema
Skin: Warm and Dry
Neuro: Awake, Alert, Oriented and AO x 3
Psych: Calm and Intact Judgement/Insight
Data Reviewed
-
Medical Tests (Nuc Med, Echo etc): Report Reviewed by me and Discussed with Physician
Labs: Labs Reviewed by me and Discussed with Physician
[2024-07-20] MEDS: ENTRESTO 49 MG/51 MG 1 TAB PO (10:16)
[2024-07-20] MEDS: HEPARIN SC (10:17)
[2024-07-20] MEDS: ORETIC 25 MG PO (10:17)
[2024-07-20] MEDS: TOPROL XL 50 MG PO (10:17)
[2024-07-20] MEDS: FLUSH (NSS) 2 FLUSH IV (10:18)
[2024-07-20 10:24] LABS: NT-proBNP 122 pg/ml
--- NOTE | 2024-07-20 11:29 | PTCARENOTE ---
Received patient this morning resting in his room, offers no complaints and is anxious to go home. Medications adjusted by cardiology and plan is for discharge today.
--- NOTE | 2024-07-20 12:27 | W.DCSUMMARY ---
Addendum entered and electronically signed by Jayy Nj MD 07/21/24 00:04:
Read, reviewed, and agree. See same day progress note for additional details.
Kevin Nj MD
Original Note:
Documented by User: Gennaro Cronin DO, Resident 07/20/24 13:14
Discharge Summary
Discharge Data
Date of Admission: 07/15/24
Date of Discharge: 07/20/24
-
Pending Results: No
Hospital Course
Discharging Physician : Clem Cronin
Disposition : Home
Primary care physician : Dr. Belle
Principal Discharge diagnosis : Hypertensive emergency
Chronic Discharge diagnosis : Atrial ventricular nonreactive and tachycardia, factor V Leiden, hypertension, marked ST abnormalities on EKG, decreased ejection fraction
Hospital Course : 54 male with past medical history of hypertension and SVT presented to the emergency department for asymptomatic elevated blood pressure readings. Patient was here in the GI suite for a colonoscopy and was noted that he had
elevated pressures. He had his labs checked was given IV labetalol and was sent to see his family doctor who also noted him to have elevated pressures. He was then sent to the emergency department where his pressures were noted to be 244/134.
Patient was started on IV hydralazine and admitted. During his first night patient had a rapid response with heart rate in the 200s and blood pressure 200/140 EKG was checked which demonstrated SVT. Patient was given adenosine and IV nicardipine
and transferred to the ICU. In the ICU pulmonology/community affairs director was consulted to help manage the patient during his time in the ICU. Patient's blood pressure was able to be controlled well and he was weaned off his Cardene drip, pulmonology also
recommended considering obstructive sleep apnea workup after discharge. Patient's SVT resolved and he was continued to be monitored on telemetry throughout his stay. Cardiology was consulted and they recommended working him up with a
echocardiogram and cardiac catheterization as potential ischemic changes were seen on EKG. His echo returned with slightly reduced EF compared to November. Patient underwent cardiac catheterization which demonstrated, systemic hypertension, mild
anterior hypokinesis with EF 44%, borderline aortic root enlargement and no significant CAD. Cardiology believes the mild LV dysfunction is unclear but could represent long-term hypertension which is inadequately controlled. Cardiology adjusted his
blood pressure medications to metoprolol succinate 50 BID, hydrochlorothiazide 25 and entresto 49/51 BID. He will follow up with his PCP and cardiology regarding his blood pressure management. 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
and keep a log. He was discharged home to follow up outpatient.
Important imaging findings :
07/15/2024 chest x-ray, findings:
No acute cardiopulmonary process.
07/18/2024 echocardiogram, findings:
Mildly reduced left ventricular systolic function. Left ventricular ejection
fraction is 45-50%.
Mild concentric left ventricular hypertrophy.
Stage I diastolic dysfunction suggestive of abnormal relaxation.
No significant valve diease.
Mildly dilated aortic root. Sinus of Valsalva measures 4.2 cm.
Compared to 12/24/23: LVEF is similar to slightly lower (prior 50%). Prior SOV
measurement was 4.0 cm.
Procedure findings :
07/19/2024 cardiac catheterization, conclusions:
1:�Systemic hypertension
2:�Mild anterior hypokinesis with EF 44%
3. Borderline aortic root enlargement
4. No significant CAD
5. Etiology of mild LV dysfunction unclear but could represent long-term hypertension inadequately controlled
Discharge Plan
-
Patient Disposition: Home (Routine Discharge)
Discharge Diagnosis/Procedures: Hypertensive emergency, cardiac cath, AV node reentrant tachycardia/supraventricular tachycardia, hypokalemia, ST abnormalities, decreased EF
Condition: Good
Diet: Low Cholesterol
Activity: As tolerated
Driving Restrictions: No driving for 24 hours
Bathing Restrictions: None
Blood Work: BMP 1-2 weeks (prior to your follow-up cardiology visit)- [facility]
Activity Restrictions/Additional Instructions:
Please follow-up with your primary care physician in 1 week of discharge. Please follow-up with informatics pharmacist Dr. Scott in 2 to 4 weeks for obstructive sleep apnea workup. Please follow-up with cardiology practice, nurse practitioner Merline
Rayshawn on 08/03/24 at 1:20 PM.
Stand Alone Forms: DC Instructions- Cath/EP Lab
Referrals:
Merline Tabares NP [Specified Professional Personl] - 08/03/24 1:20 pm
Shanice Belle MD [Family Provider] - in less than 1 week
Ralph Scott MD [Active] - in two to four weeks (Dr. Scott or nurse practitioner-needs home polysomnogram to rule out AMALIA)
Additional Discharge Medication Instructions: Monitor your blood pressure at home and bring log to follow up appointment. The blood pressure medications we would like you to take until follow-up with your primary care physician/cardiology are as
follows:
Please start taking metoprolol succinate 50 mg by mouth twice daily
Please start taking hydrochlorothiazide 25 mg by mouth daily
Please start taking Entresto 49/51 by mouth twice daily
Prescriptions:
New
Entresto 49-51 mg Tablet
1 tab PO BID Qty: 60 0RF
hydrochlorothiazide 25 mg Tablet
25 mg PO DAILY Qty: 60 0RF
metoprolol succinate 50 mg Tablet Extended Release 24 Hr
50 mg PO BID Qty: 90 0RF
Discontinued
metoprolol succinate [Toprol XL] 100 mg Tablet Extended Release 24 Hr
100 mg PO DAILY
Discharge Orders:
Discharge Patient (As Directed); Ordered 07/20/24
Ordered By: Gennaro Cronin
Care Plan Goals
Care Plan Goals:
Problem: Readiness for enhanced knowledge related to diagnosis and treatment plan
Goal: Understand your diagnosis and treatment plan needs, including medications if applicable.
Instructions: Know your diagnosis, underlying causes and treatment plan options, including medications if applicable. Consult with your health care team to learn about your diagnosis and treatment plan, including medications if applicable.
Discharge Date and Time
Discharge Date/Time: 07/20/24 12:19
Print Language: CYMRAES

Documented by User: Jayy Nj MD 07/20/24 23:58
Discharge Summary
Discharge Data
Date of Admission: 07/15/24
Date of Discharge: 07/20/24
Discharge Plan
-
Patient Disposition: Home (Routine Discharge)
Discharge Diagnosis/Procedures: Hypertensive emergency, cardiac cath, AV node reentrant tachycardia/supraventricular tachycardia, hypokalemia, ST abnormalities, decreased EF
Condition: Good
Diet: Low Cholesterol
Activity: As tolerated
Driving Restrictions: No driving for 24 hours
Bathing Restrictions: None
Blood Work: BMP 1-2 weeks (prior to your follow-up cardiology visit)- slip sent electronically to [facility]
Activity Restrictions/Additional Instructions:
Please follow-up with your primary care physician in 1 week of discharge. Please follow-up with informatics pharmacist Dr. Scott in 2 to 4 weeks for obstructive sleep apnea workup. Please follow-up with cardiology practice, nurse practitioner Merline
Rayshawn on 08/03/24 at 1:20 PM.
Stand Alone Forms: DC Instructions- Cath/EP Lab
Referrals:
Merline Tabares NP [Specified Professional Personl] - 08/03/24 1:20 pm
hSanice Belle MD [Family Provider] - in less than 1 week
Ralph Scott MD [Active] - in two to four weeks (Dr. Scott or nurse practitioner-needs home polysomnogram to rule out AMALIA)
Additional Discharge Medication Instructions: Monitor your blood pressure at home and bring log to follow up appointment. The blood pressure medications we would like you to take until follow-up with your primary care physician/cardiology are as
follows:
Please start taking metoprolol succinate 50 mg by mouth twice daily
Please start taking hydrochlorothiazide 25 mg by mouth daily
Please start taking Entresto 49/51 by mouth twice daily
Prescriptions:
New
Entresto 49-51 mg Tablet
1 tab PO BID Qty: 60 0RF
hydrochlorothiazide 25 mg Tablet
25 mg PO DAILY Qty: 60 0RF
metoprolol succinate 50 mg Tablet Extended Release 24 Hr
50 mg PO BID Qty: 90 0RF
Discontinued
metoprolol succinate [Toprol XL] 100 mg Tablet Extended Release 24 Hr
100 mg PO DAILY
Discharge Orders:
Discharge Patient (As Directed); Ordered 07/20/24
Ordered By: Gennaro Cronin
Care Plan Goals
Care Plan Goals:
Problem: Readiness for enhanced knowledge related to diagnosis and treatment plan
Goal: Understand your diagnosis and treatment plan needs, including medications if applicable.
Instructions: Know your diagnosis, underlying causes and treatment plan options, including medications if applicable. Consult with your health care team to learn about your diagnosis and treatment plan, including medications if applicable.
Discharge Date and Time
Discharge Date/Time: 07/20/24 12:19
Print Language: CYMRAES
--- NOTE | 2024-07-20 13:16 | PTCARENOTE ---
Reviewed discharge instructions, new prescriptions and follow up appointments with the patient and he states his understanding. Patient discharged home with his and son.
--- NOTE | 2024-07-20 13:27 | CM ---
CM following for DC planning needs.
Plan is for DC to home today. Met w/ patient at bedside. He feels prepared for DC; has no concerns or needs noted.
DC plan is for home, no needs.
--- NOTE | 2024-07-20 13:35 | CM ---
Kareemd Yu Christiansen and Seamus thru insurance, .
Estimated cost of each medication is $40/mo.
I have informed patient of this.
I have provided free 30 d coupon for all of these medications + free monthly co pay card and/or $10/mo co pay card, which patient is eligible for.
TT to Cards Attending to update on estimated cost.
== END 2024-07-20 12:19 | disposition home or self-care (01) | DRG 287 ==
LOC: IVU 13:40
PROVIDERS: Internal Medicine; Internal Medicine Cardiovascular Disease; Nurse Practitioner Adult Health; Physician Assistant; ADMITTING PHYSICIAN Hospitalist; ATTENDING PHYSICIAN Family Medicine; CONSULT PHYSICIAN Internal Medicine Cardiovascular Disease; CONSULT PHYSICIAN Internal Medicine Critical Care Medicine; EMERGENCY PHYSICIAN Emergency Medicine; FAMILY PHYSICIAN Family Medicine
PROC: 4A023N7 Measurement of Cardiac Sampling and Pressure, Left Heart, Percutaneous Approach (ICD-10-PCS; 2024-07-15)
PROC: B2151ZZ Fluoroscopy of Left Heart using Low Osmolar Contrast (ICD-10-PCS; 2024-07-15)
PROC: B2111ZZ Fluoroscopy of Multiple Coronary Arteries using Low Osmolar Contrast (ICD-10-PCS; 2024-07-15)
DX: I16.1 Hypertensive emergency (principal); D68.51 Activated protein C resistance; I47.19 Other supraventricular tachycardia; I42.9 Cardiomyopathy, unspecified; I10 Essential (primary) hypertension; I77.810 Thoracic aortic ectasia; E87.6 Hypokalemia; R73.9 Hyperglycemia, unspecified; Z79.899 Other long term (current) drug therapy; Z86.79 Personal history of other diseases of the circulatory system; Z86.711 Personal history of pulmonary embolism; Z88.0 Allergy status to penicillin; Z88.8 Allergy status to other drugs, medicaments and biological substances; Z82.49 Family history of ischemic heart disease and other diseases of the circulatory system; Z83.2 Family history of diseases of the blood and blood-forming organs and certain disorders involving the immune mechanism
CPT/HCPCS: 71045; 80048; 80053; 82962; 83735; 83880; 84100; 84484; 85025; 85027; 85610; 85730; 92950; 93005; 93306; 93458; 96374; 99285; C1894; J0153; Q9967

== ENCOUNTER → 2024-11-22 14:51 | Outpatient (REF) | payer BC, SELFPAY | LOC: HWRCS 14:51 | PROVIDERS: ATTENDING PHYSICIAN Nurse Practitioner; FAMILY PHYSICIAN Physician Assistant | DX: I42.0 Dilated cardiomyopathy (principal); I10 Essential (primary) hypertension; I47.19 Other supraventricular tachycardia | CPT/HCPCS: 93306 ==